=== PATIENT | male | born 1955 | race Two or more races ===

== ENCOUNTER 2022-04-18 13:30 | Inpatient (IN) | payer MEDICARE, OTHER ==
[~2022-04-18] VITALS: Ht 167.6 cm; Wt 60.3 kg
--- NOTE | 2022-04-18 13:51 | NUR ---
bibwife, c/o nausea vomiting x 3 today, last chemo 3 weeks ago. BROUGHT IN VIA WHEELCHAIR, AAOX4, PLACED ON BED, BREATHING EVEN AND UNLABORED SATURATING AT 92%RA GIVEN O2 2LIT VIA NC SATURATING AT 95%
--- NOTE | 2022-04-18 14:05 | NUR ---
AT BED SIDE FOR EVAL.
--- NOTE | 2022-04-18 14:20 | NUR ---
BLOOD DRAWN AND SENT TO LAB
[2022-04-18] MEDS ORDERED: IV NS 0.9% 1,000 ML BAG IV ONE ×2 (14:30→16:30)
[2022-04-18] MEDS ORDERED: ONDANSETRON HCL/PF 4 MG/2 ML VIAL IVP ONE (14:30)
[2022-04-18] MEDS ORDERED: ONDANSETRON HCL/PF 4 MG/2 ML VIAL ONE (14:42)
[2022-04-18 15:00] LABS: BASOPHILS % (AUTO) 0.1 % (0.0-2.0); EOSINOPHILS % (AUTO) 0.1 % (0.0-6.0); HEMATOCRIT 41 % (39-51); HEMOGLOBIN 13.8 g/dL (13.5-17.5); LYMPHOCYTES # (AUTO) 0.4 K/uL (0.8-4.8); LYMPHOCYTES % (AUTO) 3.5 % (20.0-44.0); MEAN CORPUSCULAR HGB CONC 34 g/dl (31.0-36.0); MEAN CORPUSCULAR VOLUME 92 fL (80-96); MONOCYTES # (AUTO) 0.5 K/uL (0.1-1.30); MONOCYTES % (AUTO) 4.6 % (2.0-12.0); NEUTROPHILS # (AUTO) 9.2 K/uL (1.8-8.9); NEUTROPHILS % (AUTO) 91.7 % (43.0-81.0); PLATELET COUNT (AUTO) 279 K/uL (150-450); RED BLOOD CELL COUNT(AUTO) 4.46 MIL/uL (4.5-6.0); WHITE BLOOD COUNT (AUTO) 10.1 K/uL (4.3-11.0)
[2022-04-18 15:12] LABS: CALCIUM, SERUM 8.9 mg/dL (8.5-10.1); CARBON DIOXIDE 30 mmol/L (21-32); CHLORIDE 89 mmol/L (98-107); CREATININE 1.4 mg/dL (0.6-1.3); GLUCOSE 184 mg/dL (74-106); POTASSIUM 3.5 mmol/L (3.5-5.1); SODIUM SERUM 128 mmol/L (136-145); UREA NITROGEN, BLOOD 18 mg/dL (7-18)
[2022-04-18 15:18] LABS: ALANINE AMINOTRANSFERASE 39 U/L (12-78); ALBUMIN 3.4 g/dL (3.4-5.0); ALKALINE PHOSPHATASE 63 U/L (46-116); ASPARTATE AMINOTRANSFERASE 27 U/L (15-37); BILIRUBIN,DIRECT 0.1 mg/dL (0.0-0.2); BILIRUBIN,TOTAL 0.4 mg/dL (0.2-1.0); LIPASE 72 U/L (73-393); TOTAL PROTEIN, SERUM 7.8 g/dL (6.4-8.2)
[2022-04-18] MEDS ORDERED: VANCOMYCIN 1 GM in IV D5W 250 ML IV ONE (16:30)
[2022-04-18] MEDS ORDERED: PIPERACILLIN /TAZOBACTAM 3.375 G in IV D5W 50 ML IV ONE (16:30)
[2022-04-18] MEDS ORDERED: ACETAMINOPHEN ES 500 MG TABLET PO ONE (16:30)
[2022-04-18] MEDS ORDERED: ONDANSETRON HCL/PF 4 MG/2 ML VIAL IV ONE (16:30)
--- NOTE | 2022-04-18 16:58 | NUR ---
URINE SAMPLE SENT TO LAB
--- NOTE | 2022-04-18 17:12 | NUR ---
SWAB FOR COVID19 SENT TO LAB
--- NOTE | 2022-04-18 17:20 | NUR ---
PATIENT TAKEN TO CT VIA CIPRIANO
[2022-04-18] MEDS ORDERED: IOHEXOL-300 100 ML VIAL IV ONE (17:24)
[2022-04-18] MEDS ORDERED: IV NS 0.9% 250 ML IV ONE (17:24)
[2022-04-18 17:56] LABS: BILIRUBIN,URINE NEGATIVE (NEGATIVE); COLOR,URINE YELLOW (YELLOW); LEUKOCYTE ESTERASE ,URINE NEGATIVE (NEGATIVE); NITRITE, URINE NEGATIVE (NEGATIVE); PROTEIN,URINE 30 mg/dl (NEGATIVE); UGLUCOSE NEGATIVE (NEGATIVE); UROBILINOGEN,URINE 0.2 EU/dL (0.2)
[2022-04-18 18:01] LABS: BACTERIA,URINE None seen /HPF (None Seen); SQUAMOUS EPITHELIAL CELL,UR 0-2 /HPF (None Seen); WBC,URINE 0-2 /HPF (0-3)
[2022-04-18] MEDS ORDERED: FOLI0.4T6 PO (19:19)
[2022-04-18] MEDS ORDERED: PRED20TA PO (19:19)
[2022-04-18] MEDS ORDERED: SULF1TAB48 PO (19:19)
[2022-04-18] MEDS ORDERED: PANT40TA49 PO (19:19)
[2022-04-18] MEDS ORDERED: IV CHEMO IV (19:19)
[2022-04-18] MEDS ORDERED: CHOL100043 PO (19:19)
[2022-04-18] MEDS ORDERED: ENTE0.5T11 PO (19:19)
[2022-04-18] MEDS ORDERED: MULT-188 PO (19:19)
[2022-04-18] MEDS ORDERED: CETI-90 PO (19:20)
--- NOTE | 2022-04-18 20:29 | NUR ---
Melania ramirez in [place] - 04/18/22 at 2132 by AUGUST REPORT GIVEN TO ISREAL DECKER ROOM 310-2 FOR MARI
[2022-04-18] MEDS ORDERED: ALBUTEROL FS 2.5 MG/0.5 ML VIAL.NEB NEB PRN (21:00)
[2022-04-18] MEDS ORDERED: ONDANSETRON HCL/PF 4 MG/2 ML VIAL IVP PRN (21:00)
[2022-04-18] MEDS ORDERED: IPRATROPIUM BROMIDE 14 GM INHALER (or 12.9 GM) IH PRN (21:00)
[2022-04-18] MEDS ORDERED: ACETAMINOPHEN ES 500 MG TABLET ONE (21:14)
[2022-04-18] MEDS ORDERED: ACETAMINOPHEN ES 500 MG TABLET PO PRN (21:30)
--- NOTE | 2022-04-18 21:30 | NUR ---
REPORT GIVEN TO JOSE RN ROOM 113-2 FOR MARI
--- NOTE | 2022-04-18 21:40 | NUR ---
RN NOTE RECEIVED REPORT FROM ER NURSE BUCK. PT ARRIVED VIA GURNEY, AMBULATORY BUT WITH ASSISTANCE. PT BROUGHT TO HOSPITAL DUE TO NAUSEA AND VOMITING WITH AN ADMITTING DIAGNOSIS OF SEPSIS. CURRENTLY ON O2 THERAPY VIA NC, 3L. PT IS TOLERATING WELL. NO S/SX OF ACUTE DISTRESS NOTED AT THIS TIME. DENIES PAIN. ON TELE MONITOR SHOWING SINUS TACHYCARDIA WITH A HR OF >120. O2 SATURATION IS >95%. PT IS A/O X 4, ABLE TO MAKE NEEDS KNOWN. FRISIAN SPEAKING BUT CAN SPEAK AND UNDERSTAND SIMPLE ROMANSH. IV ACCESS NOTED IN LAC, #20G. INTACT AND PATENT. STARTED INFUSING NS @ 75 CC/HR ORDERED. SKIN IS INTACT. URINAL ON BEDSIDE. ALL SAFETY MEASURES IN PLACE: BED LOCKED, IN LOW POSITION. BED ALARM ON. CALL LIGHT WITHIN REACH. WILL CONTINUE TO MONITOR PT CLOSELY.
[2022-04-18] MEDS: IV NS 0.9% 1,000 ML IV SCH (22:00)
[2022-04-18] MEDS ORDERED: IV NS 0.9% 1,000 ML IV STA (23:41)
[2022-04-18] MEDS ORDERED: PIPERACILLIN /TAZOBACTAM 3.375 G VIAL IV ONE (23:50)
[2022-04-19] VITALS: BP 108/59
[2022-04-19] MEDS: ZOSYN IVPB 3.375 G in IV D5W 50ml IV SCH ×2 (00:11→06:00)
[2022-04-19] MEDS: ACETAMINOPHEN 325 MG TABLET PO PRN ×3 (03:39→23:12)
[2022-04-19 04:00] VITALS: BP 115/65
--- NOTE | 2022-04-19 04:03 | NUR ---
RN NOTE PT HAS ELEVATED TEMP AT 99.8 PT DENIES PAIN NOR SHOWS S/SX OF ACUTE DISTRESS UPON FURTHER ASSESSMENT. GAVE TYLENOL ORDERED. WILL CONTINUE TO MONITOR AND REASSESS IN 30 MINUTES.
[2022-04-19] MEDS ORDERED: PIPERACILLIN /TAZOBACTAM 3.375 G VIAL IV ONE (05:58)
--- NOTE | 2022-04-19 06:22 | NUR ---
RN CLOSING NOTE PT REMAINED STABLE THROUGHOUT THE NIGHT. ELEVATED TEMP NOW STABLE. TELE MONITOR SHOWS ST WITH HR IN THE 120s. PT DENIES PAIN. NO SOB. NO S/SX OF ACUTE DISTRESS NOTED. ALL DUE MEDS GIVEN ORDERED. NEEDS ATTENDED TO. TURNED AND REPOSITIONED. ALL SAFETY MEASURES IN PLACE. WILL ENDORSE TO AM SHIFT NURSE FOR MARI.
--- NOTE | 2022-04-19 07:20 | NUR ---
RN OPEN NOTE PATIENT IS ALERT , ORIENTED TIMES 4 , AMBULATORY BUT WITH ASSISTANCE. CURRENTLY ON O2 THERAPY VIA NC, 3L. PT IS TOLERATING WELL. NO S/SX OF ACUTE DISTRESS NOTED AT THIS TIME. DENIES PAIN. ON TELE MONITOR SHOWING SINUS TACHYCARDIA WITH A HR OF >118. O2 SATURATION IS 96%. PT IS A/O X 4, ABLE TO MAKE NEEDS KNOWN. LATVIAN SPEAKING BUT CAN SPEAK AND UNDERSTAND SIMPLE NAURUAN.HAS IV ACCESS NOTED IN LAC, #20G. INTACT AND PATENT. WITH NS RUNNING @ 75 CC/HR SKIN IS INTACT. URINAL ON BEDSIDE. ALL SAFETY MEASURES IN PLACE: BED LOCKED, IN LOW POSITION. BED ALARM ON. CALL LIGHT WITHIN REACH. WILL CONTINUE TO MONITOR AND FALLOW POC
[2022-04-19] MEDS: VANCOMYCIN HCL 0.75 GM in IV D5W 250 ML IV SCH ×2 (07:23→19:42)
[2022-04-19 07:37] LABS: ALBUMIN 2.5 g/dL (3.4-5.0); BILIRUBIN,TOTAL 0.6 mg/dL (0.2-1.0); CALCIUM, SERUM 7.7 mg/dL (8.5-10.1); CREATININE 1.3 mg/dL (0.6-1.3); PHOSPHORUS 3.4 mg/dL (2.5-4.9); POTASSIUM 3.2 mmol/L (3.5-5.1); TOTAL PROTEIN, SERUM 6.2 g/dL (6.4-8.2)
[2022-04-19] MEDS: PANTOPRAZOLE 40 MG TABLET.DR PO SCH (07:41)
[2022-04-19 07:44] LABS: HEMATOCRIT 39 % (39-51); MEAN CORPUSCULAR HGB CONC 34 g/dl (31.0-36.0); MEAN CORPUSCULAR VOLUME 92 fL (80-96); PLATELET COUNT (AUTO) 192 K/uL (150-450)
[2022-04-19 07:47] LABS: BAND % (MANUAL) 14 % (0.0-5.0); LYMPHOCYTES % (MANUAL) 1 % (16-48); MONOCYTES % (MANUAL) 1 % (0-11.0); NEUTROPHILS % (MANUAL) 84 (42-76)
[2022-04-19 08:00] VITALS: BP 100/64
[2022-04-19] MEDS: MULTIVITAMINS,THERAGRAN 1 UDTAB TABLET PO SCH (08:21)
[2022-04-19] MEDS: FOLIC ACID 1 MG TABLET PO SCH (08:21)
[2022-04-19] MEDS: CHOLECALCIFEROL 1,000 UNIT TABLET (VIT D3) PO SCH (08:22)
[2022-04-19] MEDS: cetrizine 10 MG TABLET PO SCH (08:22)
[2022-04-19] MEDS ORDERED: PANTOPRAZOLE 40 MG VIAL IV SCH (09:00)
[2022-04-19] MEDS ORDERED: predniSONE 20 MG TABLET PO SCH (09:00)
[2022-04-19 09:31] LABS: THYROID STIMULATING HORMONE 0.347 uIU/mL (0.358-3.74)
[2022-04-19] MEDS ORDERED: POTASSIUM CHLORIDE 20 MEQ TAB.PRT.SR PO SCH (10:00)
[2022-04-19] MEDS: IV NS 0.9% 1,000 ML IV SCH ×2 (10:29→22:41)
[2022-04-19] MEDS: PIPERACILLIN /TAZOBACTAM 3.375 G in IV D5W 50 ML IV SCH ×3 (11:41→23:01)
[2022-04-19 12:00] VITALS: BP 105/61
[2022-04-19 16:00] VITALS: BP 111/57
--- NOTE | 2022-04-19 18:31 | NUR ---
RN CLOSING NOTE PATIENT IS ALERT , ORIENTED TIMES 4 , AMBULATORY BUT WITH ASSISTANCE. CURRENTLY ON O2 THERAPY VIA NC, 3L. PT IS TOLERATING WELL. NO S/SX OF ACUTE DISTRESS NOTED AT THIS TIME. DENIES PAIN. ON TELE MONITOR SHOWING SINUS TACHYCARDIA WITH A HR OF >120. O2 SATURATION IS 97%. PT IS A/O X 4, ABLE TO MAKE NEEDS KNOWN. NIGERIAN SPEAKING BUT CAN SPEAK AND UNDERSTAND SIMPLE ARABIC.HAS IV ACCESS NOTED IN LAC, #20GRUNNING NS AT 75 ML/HR, INTACT AND PATENT. URINAL ON BEDSIDE. ALL SAFETY MEASURES IN PLACE: BED LOCKED, IN LOW POSITION. BED ALARM ON. CALL LIGHT WITHIN REACH.
--- NOTE | 2022-04-19 19:30 | NUR ---
RN OPENING NOTE RECEIVED PT FOR MARI. PT IN BED, AWAKE, A/O X 4, ABLE TO MAKE NEEDS KNOWN. ON BEDSIDE. ON 02 VIA NC AT 3L, TOLERATING WELL. NO S/SX OF ACUTE DISTRESS NOTED AT THIS TIME. PT DENIES PAIN. IV ACCESS NOTED IN LAC #20G RUNNING NS @ 75 CC/HR, INTACT AND PATENT. ON TELE MONITOR SHOWING ST, HR IN THE 110s. WILL CONTINUE TO MONITOR PT CLOSELY. ALL SAFETY MEASURES IN PLACE: BED LOCKED IN LOW POSITION, BED ALARM ON. CALL LIGHT WITHIN REACH.
[2022-04-19] MEDS: ENTECAVIR 0.5 MG PO SCH (19:42)
[2022-04-19 20:00] VITALS: BP 109/63
--- NOTE | 2022-04-19 23:17 | NUR ---
RN NOTE PT HAS LOW GRADE FEVER. DENIES PAIN. NO SOB. GAVE TYLENOL ORDERED. WILL REASSESS IN 30 MINUTES.
--- NOTE | 2022-04-19 23:47 | NUR ---
RN NOTE PT TEMP NOW STABLE. WILL CONTINUE TO MONITOR.
[2022-04-20] VITALS: BP 109/60
[2022-04-20 04:00] VITALS: BP 113/69
[2022-04-20] MEDS: PIPERACILLIN /TAZOBACTAM 3.375 G in IV D5W 50 ML IV SCH ×4 (05:02→23:39)
[2022-04-20] MEDS: VANCOMYCIN HCL 0.75 GM in IV D5W 250 ML IV SCH (06:05)
--- NOTE | 2022-04-20 06:31 | NUR ---
RN CLOSING NOTE NO SIGNIFICANT CHANGE THROUGHOUT THE NIGHT. PT ON TELE MONITOR REMAINS ST WITH HR OF 100-120. O2 SATURATION IS >95%. PT STILL DENIES PAIN OR SOB. ALL DUE MEDS GIVEN. NEEDS ATTENDED TO. PM CARE DONE. TURNED AND REPOSITIONED. SAFETY MEASURES IN PLACE. WILL ENDORSE TO AM SHIFT NURSE FOR MARI.
--- NOTE | 2022-04-20 07:15 | NUR ---
RN OPENING NOTE RECEIVED PATIENT IN BED, A/O X 4, VERBAL ,ABLE TO MAKE NEEDS KNOWN. ON 02 VIA NC AT 3L, TOLERATING WELL. NO S/SX OF ACUTE DISTRESS NOTED AT THIS TIME. PT DENIES PAIN. IV ACCESS NOTED IN LAC #20G RUNNING NS @ 75 CC/HR, INTACT AND PATENT. ON TELE MONITOR SHOWING ST, HR IN THE 110s. . ALL SAFETY MEASURES IN PLACE: BED LOCKED IN LOW POSITION, BED ALARM ON. CALL LIGHT WITHIN REACH. WILL CONTINUE TO MONITOR AND FALLOW THE POC
[2022-04-20 07:59] LABS: CALCIUM, SERUM 9.3 mg/dL (8.5-10.1)
[2022-04-20 08:00] VITALS: BP 110/62
[2022-04-20] MEDS: cetrizine 10 MG TABLET PO SCH (08:43)
[2022-04-20] MEDS: CHOLECALCIFEROL 1,000 UNIT TABLET (VIT D3) PO SCH (08:44)
[2022-04-20] MEDS: predniSONE 20 MG TABLET PO SCH (08:44)
[2022-04-20] MEDS: FOLIC ACID 1 MG TABLET PO SCH (08:44)
[2022-04-20] MEDS: MULTIVITAMINS,THERAGRAN 1 UDTAB TABLET PO SCH (08:45)
[2022-04-20] MEDS: PANTOPRAZOLE 40 MG TABLET.DR PO SCH (08:49)
[2022-04-20] MEDS: ENTECAVIR 0.5 MG PO SCH (08:50)
[2022-04-20 12:00] VITALS: BP 99/60
[2022-04-20] MEDS: IV NS 0.9% 1,000 ML IV SCH (13:04)
[2022-04-20] MEDS: ACETAMINOPHEN 325 MG TABLET PO PRN (15:53)
[2022-04-20 16:00] VITALS: BP 111/74
[2022-04-20] MEDS: VANCOMYCIN 1 GM in IV D5W 250 ML IV SCH (17:34)
--- NOTE | 2022-04-20 18:46 | NUR ---
RN CLOSING NOTE RECEIVED IN BED, A/O X 4, VERBAL ,ABLE TO MAKE NEEDS KNOWN. ON 02 VIA NC AT 3L, TOLERATING WELL. NO S/SX OF ACUTE DISTRESS NOTED AT THIS TIME. PT DENIES PAIN. IV ACCESS NOTED IN TYSON #24 G RUNNING NS @ 75 CC/HR, INTACT AND PATENT. ON TELE MONITOR SHOWING ST, HR IN THE 98s. . ALL SAFETY MEASURES IN PLACE: BED LOCKED IN LOW POSITION, BED ALARM ON. CALL LIGHT WITHIN REACH. WILL CONTINUE TO MONITOR AND FALLOW THE POC
--- NOTE | 2022-04-20 19:30 | NUR ---
RECEIVED IN BED WITH DAUGHTER AT BEDSIDE, A/O X 4, VERBAL AND ABLE TO MAKE NEEDS KNOWN. ON 02 VIA NC AT 3L, TOLERATING WELL. NO S/SX OF ACUTE DISTRESS NOTED AT THIS TIME. IV ACCESS NOTED IN RT ARM #24 G INFUSING NS @ 75 ML/HR, INTACT AND PATENT. ON TELE MONITOR SHOWING ST WITH HR AT 120s. SAFETY MEASURES IMPLEMENTED PER HOSPITAL PROTOCOLS, HOB ELEVATED, BED LOCKED IN LOWEST POSITION WITH SIDE RAILS UP X 2. CALL LIGHT WITHIN REACH. WILL CONTINUE PLAN OF CARE.
[2022-04-20 19:59] LABS: OCCULT BLOOD STOOL NEGATIVE (NEGATIVE)
[2022-04-20 20:00] VITALS: BP 101/65
[2022-04-21] VITALS: BP 113/73
[2022-04-21] MEDS: IV NS 0.9% 1,000 ML IV SCH ×3 (02:54→21:37)
[2022-04-21 04:00] VITALS: BP 99/67
[2022-04-21] MEDS: VANCOMYCIN 1 GM in IV D5W 250 ML IV SCH (05:15)
[2022-04-21] MEDS: PIPERACILLIN /TAZOBACTAM 3.375 G in IV D5W 50 ML IV SCH (05:47)
--- NOTE | 2022-04-21 06:52 | NUR ---
PATIENT IN BED ASLEEP. EASILY AWAKENS. A/O X 4, VERBAL AND ABLE TO MAKE NEEDS KNOWN. ON 02 VIA NC AT 3L, TOLERATING WELL. NO S/SX OF ACUTE DISTRESS NOTED AT THIS TIME. IV ACCESS NOTED IN RT ARM #24 G INFUSING NS @ 75 ML/HR, INTACT AND PATENT. ON TELE MONITOR SHOWING ST WITH HR AT 120s. ALL DUE MEDS GIVEN. SAFETY MEASURES IMPLEMENTED PER HOSPITAL PROTOCOLS, HOB ELEVATED, BED LOCKED IN LOWEST POSITION WITH SIDE RAILS UP X 2. CALL LIGHT WITHIN REACH. WILL ENDORSE TO NEXT NURSE ON DUTY FOR CONTINUITY OF CARE.
[2022-04-21 06:53] LABS: BASOPHILS % (AUTO) 0.2 % (0.0-2.0); EOSINOPHILS % (AUTO) 0.4 % (0.0-6.0); HEMATOCRIT 42 % (39-51); HEMOGLOBIN 13.3 g/dL (13.5-17.5); LYMPHOCYTES # (AUTO) 0.8 K/uL (0.8-4.8); LYMPHOCYTES % (AUTO) 15.5 % (20.0-44.0); MEAN CORPUSCULAR HGB CONC 31 g/dl (31.0-36.0); MEAN CORPUSCULAR VOLUME 96 fL (80-96); MONOCYTES # (AUTO) 0.5 K/uL (0.1-1.30); MONOCYTES % (AUTO) 10.1 % (2.0-12.0); NEUTROPHILS # (AUTO) 3.8 K/uL (1.8-8.9); NEUTROPHILS % (AUTO) 73.8 % (43.0-81.0); PLATELET COUNT (AUTO) 108 K/uL (150-450); RED BLOOD CELL COUNT(AUTO) 4.39 MIL/uL (4.5-6.0); WHITE BLOOD COUNT (AUTO) 5.2 K/uL (4.3-11.0)
[2022-04-21 06:55] LABS: CALCIUM, SERUM 9.1 mg/dL (8.5-10.1); CREATININE 0.8 mg/dL (0.6-1.3); POTASSIUM 3.6 mmol/L (3.5-5.1)
--- NOTE | 2022-04-21 07:30 | NUR ---
RN OPEN NOTE PATIENT IS A&O X4, AMBULATORY TO BATHROOM. PATIENT SATTING AT 96% ON 3L NC. IV ACCESS LAC, #20G. INTACT, PATENT and RUNNING NS @ 75 ML/HR SKIN IS INTACT. URINAL ON BEDSIDE. ALL SAFETY FALL PRECAUTIONS IN PLACE, BED IN LOWEST POSITION, BED LOCK ON, SIDE RAILS UP, BED ALARM ON, CALL LIGHT WITHIN REACH. WILL CONTINUE TO MONITOR.
[2022-04-21 08:07] LABS: IMMUNOGLOBULIN A, SERUM 278 mg/dL (61-437); IMMUNOGLOBULIN G, SERUM 833 mg/dL (603-1613); IMMUNOGLOBULIN M, SERUM 177 mg/dL (20-172)
[2022-04-21] MEDS: MULTIVITAMINS,THERAGRAN 1 UDTAB TABLET PO SCH (09:44)
[2022-04-21] MEDS: PANTOPRAZOLE 40 MG TABLET.DR PO SCH (09:44)
[2022-04-21] MEDS: ENTECAVIR 0.5 MG PO SCH (09:44)
[2022-04-21] MEDS: FOLIC ACID 1 MG TABLET PO SCH (09:44)
[2022-04-21] MEDS: cetrizine 10 MG TABLET PO SCH (09:45)
[2022-04-21] MEDS: predniSONE 20 MG TABLET PO SCH (09:46)
[2022-04-21] MEDS: CHOLECALCIFEROL 1,000 UNIT TABLET (VIT D3) PO SCH (09:47)
[2022-04-21 10:49] LABS: MAGNESIUM 2.5 mg/dL (1.8-2.4); PHOSPHORUS 3.1 mg/dL (2.5-4.9)
--- NOTE | 2022-04-21 11:00 | NUR ---
RN NOTE PATIENT AND WERE EDUCATED ABOUT THE PATIENTS CONDITION AND TREATMENT MOVING FORWARD.
[2022-04-21 12:06] LABS: *SPE A/G RATIO 0.7 (0.7-1.7); *SPE ALPHA-1-GLOBULIN 0.5 g/dL (0.0-0.4); *SPE ALPHA-2-GLOBULIN 1.1 g/dL (0.4-1.0); *SPE M-SPIKE 0.5 g/dL (Not Observed)
[2022-04-21 13:00] VITALS: BP 146/64
--- NOTE | 2022-04-21 15:40 | NUR ---
RN/NOTE NS WAS HELD DUE TO BAG BEING FULL.
--- NOTE | 2022-04-21 19:00 | NUR ---
RN/NOTE ALL CARE ENDORSED TO SOFTBALL PLAYER RN. ALL VSS. NO SIGNS OF DISTRESS.
--- NOTE | 2022-04-21 19:30 | NUR ---
RECEIVED IN BED AWAKE, NO SOB, NOT IN DISTRESS. A/O X 4, VERBAL AND ABLE TO MAKE NEEDS KNOWN. ON 02 VIA NC AT 3L, TOLERATING WELL. NO S/SX OF ACUTE DISTRESS NOTED AT THIS TIME. IV ACCESS NOTED IN RT ARM #24 G INFUSING NS @ 75 ML/HR, INTACT AND PATENT. ON TELE MONITOR SHOWING ST WITH HR AT 120s. SAFETY MEASURES IMPLEMENTED PER HOSPITAL PROTOCOLS, HOB ELEVATED, BED LOCKED IN LOWEST POSITION WITH SIDE RAILS UP X 2. CALL LIGHT WITHIN REACH. WILL CONTINUE PLAN OF CARE.
[2022-04-21 21:00] VITALS: BP 122/93
[2022-04-21] MEDS: CEFEPIME 1 GM in IV D5W 50 ML IV SCH (21:34)
[2022-04-21] MEDS: DOXYCYCLINE HYCLATE (100 MG) 100 MG TABLET PO SCH (21:34)
[2022-04-22 05:00] VITALS: BP 119/76
--- NOTE | 2022-04-22 06:38 | NUR ---
PT IN BED ASLEEP. A/O X 4, VERBAL AND ABLE TO MAKE NEEDS KNOWN. ON 02 VIA NC AT 3L, TOLERATING WELL. NO S/SX OF ACUTE DISTRESS NOTED AT THIS TIME. IV ACCESS NOTED IN RT ARM #24 G INFUSING NS @ 75 ML/HR, INTACT AND PATENT. ON TELE MONITOR SHOWING ST WITH HR AT 120s. SAFETY MEASURES IMPLEMENTED PER HOSPITAL PROTOCOLS, HOB ELEVATED, BED LOCKED IN LOWEST POSITION WITH SIDE RAILS UP X 2. CALL LIGHT WITHIN REACH. WILL ENDORSE TO NEXT NURSE ON DUTY FOR CONTINUITY OF CARE.
--- NOTE | 2022-04-22 07:14 | NUR ---
MS RN OPENING NOTES: RECEIVED PT IN BED ASLEEP EASILY AROUSED WITH STIMULI. NO SOB OR CARDIAC DISTRESS NOTED, OM O2 INHALATION @3LPM VIA NASAL CANULLA. IV ACCESS ON LAC G20 PATENT AND INTACT RUNNING NS AT 75ML/HR. SAFETY PRECAUTIONS MAINTAINED: BED LOCKED AND IN LOWEST POSITION, SIDE RAILS UP X 2. CALL LIGHT IN EASY REACH FOR HELP. WILL MONITOR PATIENT ACCORDINGLY.
[2022-04-22 07:18] LABS: BASOPHILS % (AUTO) 0.2 % (0.0-2.0); EOSINOPHILS % (AUTO) 1.9 % (0.0-6.0); HEMATOCRIT 40 % (39-51); HEMOGLOBIN 12.7 g/dL (13.5-17.5); LYMPHOCYTES # (AUTO) 1.8 K/uL (0.8-4.8); LYMPHOCYTES % (AUTO) 27.7 % (20.0-44.0); MEAN CORPUSCULAR HGB CONC 32 g/dl (31.0-36.0); MEAN CORPUSCULAR VOLUME 94 fL (80-96); MONOCYTES # (AUTO) 0.8 K/uL (0.1-1.30); MONOCYTES % (AUTO) 11.8 % (2.0-12.0); NEUTROPHILS # (AUTO) 3.7 K/uL (1.8-8.9); NEUTROPHILS % (AUTO) 58.4 % (43.0-81.0); PLATELET COUNT (AUTO) 125 K/uL (150-450); RED BLOOD CELL COUNT(AUTO) 4.24 MIL/uL (4.5-6.0); WHITE BLOOD COUNT (AUTO) 6.4 K/uL (4.3-11.0)
[2022-04-22 07:36] LABS: CALCIUM, SERUM 8.7 mg/dL (8.5-10.1); CREATININE 0.8 mg/dL (0.6-1.3); MAGNESIUM 1.8 mg/dL (1.8-2.4); PHOSPHORUS 3.4 mg/dL (2.5-4.9); POTASSIUM 3.5 mmol/L (3.5-5.1)
[2022-04-22] MEDS: PANTOPRAZOLE 40 MG TABLET.DR PO SCH (07:45)
[2022-04-22] MEDS: ENTECAVIR 0.5 MG PO SCH (08:16)
[2022-04-22] MEDS: CHOLECALCIFEROL 1,000 UNIT TABLET (VIT D3) PO SCH (08:16)
[2022-04-22] MEDS: CEFEPIME 1 GM in IV D5W 50 ML IV SCH (08:16)
[2022-04-22] MEDS: predniSONE 20 MG TABLET PO SCH (08:17)
[2022-04-22] MEDS: DOXYCYCLINE HYCLATE (100 MG) 100 MG TABLET PO SCH (08:17)
[2022-04-22] MEDS: cetrizine 10 MG TABLET PO SCH (08:17)
[2022-04-22] MEDS: FOLIC ACID 1 MG TABLET PO SCH (08:17)
[2022-04-22] MEDS: MULTIVITAMINS,THERAGRAN 1 UDTAB TABLET PO SCH (08:17)
[2022-04-22] MEDS ORDERED: IV NS 0.9% 1,000 ML IV PRN (09:37)
[2022-04-22 13:00] VITALS: BP 112/65
--- NOTE | 2022-04-22 18:44 | NUR ---
RECOVERY COLLECTOR NOTES: PATIENT DC HOME WITH SHELL. PATIENT ALERT AND ORIENTED X 4 ABLE TO VERBALIZED NEEDS. NO SOB OR CARDIAC DISTRESS NOTED ON ROOM AIR TOLERATING WELL SATURATING 97%. DENIES ANY PAIN AT THIS TIME. HOSPITAL DISCHARGED PAPERS GIVEN TO PATIENT. FOLLOW UP TO PCP IN 1 WEEK. BELONGINGS CARRIED WITH THE PT, HOME MEDS TAKEN PATIENT SIGNED ALL DOCS/FORMS. BODY ASSESSMENT: SKIN INTACT. IV ACCESS REMOVED AND SECURED WITH TAPE. PATIENT LEFT THE UNIT STABLE. REMOVED IDENTIFICATION BAND.
== END 2022-04-22 18:00 | disposition home or self-care (01) | DRG 871 ==
LOC: ER 13:46 → TELE 20:14 → TELE1 20:52 → MEDSG1 04-21 09:47
PROVIDERS: ADMIT Registered Nurse; ATTEND Student in an Organized Health Care Education/Training Program
DX: A41.9 Sepsis, unspecified organism (principal); J15.9 Unspecified bacterial pneumonia; R65.21 Severe sepsis with septic shock; E87.1 Hypo-osmolality and hyponatremia; N17.9 Acute kidney failure, unspecified; D84.9 Immunodeficiency, unspecified; E87.2 Acidosis; C79.72 Secondary malignant neoplasm of left adrenal gland; C79.71 Secondary malignant neoplasm of right adrenal gland; B19.10 Unspecified viral hepatitis B without hepatic coma; E86.0 Dehydration; Z20.822 Contact with and (suspected) exposure to COVID-19; K21.9 Gastro-esophageal reflux disease without esophagitis; Z79.899 Other long term (current) drug therapy; R19.7 Diarrhea, unspecified; Z92.21 Personal history of antineoplastic chemotherapy; Z87.891 Personal history of nicotine dependence; Z85.118 Personal history of other malignant neoplasm of bronchus and lung; E88.09 Other disorders of plasma-protein metabolism, not elsewhere classified; E27.8 Other specified disorders of adrenal gland; E11.9 Type 2 diabetes mellitus without complications; D64.9 Anemia, unspecified; E86.1 Hypovolemia; E87.6 Hypokalemia; K42.9 Umbilical hernia without obstruction or gangrene; K44.9 Diaphragmatic hernia without obstruction or gangrene
CPT/HCPCS: 36415; 71045-TC; 71250-TC; 80048-TC; 80053-TC; 80061-TC; 80076-TC; 80202-TC; 81001; 82272-TC; 82378; 82607-TC; 82728-TC; 82784; 83540-TC; 83605-TC; 83690-TC; 83735-TC; 84100-TC; 84155; 84165; 84439-TC; 84443-TC; 84484-TC; 85025-TC; 86334; 87040-TC; 87045-TC; 87081-TC; 87086-TC; 87177; 87209; 94799-TC; C9113; C9803; G0378; J0692; J2405; J2543; J3370; J3490; J7030; J7050; J7060; Q9967

== ENCOUNTER 2022-05-02 22:43 | Inpatient (IN) | payer MEDICARE, OTHER ==
[~2022-05-02] VITALS: Ht 167.6 cm; Wt 57.6 kg
[~2022-05-02 22:43] MED LIST: CETI-90 PO; CHOL100043 PO; ENTE0.5T11 PO; FOLI0.4T6 PO; IV CHEMO IV; MULT-188 PO; PANT40TA49 PO; PRED20TA PO; SULF1TAB48 PO
--- NOTE | 2022-05-02 22:53 | NUR ---
PATIENT BIBFAMILY C/O FEVER, CHILLS, N/V STARTED TONIGHT, GIVEN 2 TABS OF TYLENOL PIPE COVERING MOLDER. PATIENT TAKEN TO ER BED 06. PATIENT IS A/O X 4, RR EVEN, NO SOB NOTED. PATIENT AFEBRILE. PATIENT CONNECTED TO MONITORS.
--- NOTE | 2022-05-02 22:54 | NUR ---
ER AT BEDSIDE
[2022-05-02] MEDS ORDERED: IV LR 1000 ML 1,000 ML BAG IV ONE (23:00)
[2022-05-02] MEDS ORDERED: PIPERACILLIN /TAZOBACTAM 3.375 G in IV D5W 50 ML IV ONE (23:00)
[2022-05-02] MEDS ORDERED: MORPHINE SULFATE INJ 2 MG/ML DISP.SYRIN IV ONE (23:00)
[2022-05-02] MEDS ORDERED: ONDANSETRON HCL/PF - ER 4 MG/2 ML VIAL IV ONE (23:00)
[2022-05-02] MEDS ORDERED: MORPHINE SULFATE INJ 2 MG/ML DISP.SYRIN ONE (23:04)
[2022-05-02] MEDS ORDERED: ONDANSETRON HCL/PF 4 MG/2 ML VIAL ONE (23:04)
[2022-05-02] MEDS ORDERED: PIPERACILLIN /TAZOBACTAM 3.375 G VIAL IV ONE (23:06)
--- NOTE | 2022-05-02 23:18 | NUR ---
IV LINE ESTABLISHED, RFA20G
--- NOTE | 2022-05-02 23:19 | NUR ---
COVID SWAB COLLECTED AND SENT TO LAB
--- NOTE | 2022-05-02 23:19 | NUR ---
PCR COVID SWAB COLLECTED
--- NOTE | 2022-05-02 23:19 | NUR ---
BLOOD AND CULTURES COLLECTED AND SENT TO LAB
--- NOTE | 2022-05-02 23:20 | NUR ---
MRSA SWAB COLLECTED AND SENT TO LAB
--- NOTE | 2022-05-02 23:20 | NUR ---
URINE COLLECTED AND SENT TO LAB
[2022-05-02 23:26] LABS: BASOPHILS % (AUTO) 0.1 % (0.0-2.0); EOSINOPHILS % (AUTO) 0.2 % (0.0-6.0); HEMATOCRIT 40 % (39-51); HEMOGLOBIN 13.2 g/dL (13.5-17.5); LYMPHOCYTES # (AUTO) 0.3 K/uL (0.8-4.8); LYMPHOCYTES % (AUTO) 2.4 % (20.0-44.0); MEAN CORPUSCULAR HGB CONC 33 g/dl (31.0-36.0); MEAN CORPUSCULAR VOLUME 92 fL (80-96); MONOCYTES # (AUTO) 0.1 K/uL (0.1-1.30); NEUTROPHILS # (AUTO) 11.8 K/uL (1.8-8.9); NEUTROPHILS % (AUTO) 96.3 % (43.0-81.0); PLATELET COUNT (AUTO) 356 K/uL (150-450); RED BLOOD CELL COUNT(AUTO) 4.36 MIL/uL (4.5-6.0); WHITE BLOOD COUNT (AUTO) 12.2 K/uL (4.3-11.0)
[2022-05-02] MEDS ORDERED: IV NS 0.9% 1,000 ML IV ONE (23:30)
[2022-05-02 23:38] LABS: CALCIUM, SERUM 8.7 mg/dL (8.5-10.1); CARBON DIOXIDE 26 mmol/L (21-32); CHLORIDE 96 mmol/L (98-107); GLUCOSE 197 mg/dL (74-106); POTASSIUM 3.7 mmol/L (3.5-5.1); SODIUM SERUM 132 mmol/L (136-145); UREA NITROGEN, BLOOD 26 mg/dL (7-18)
[2022-05-02 23:44] LABS: ALANINE AMINOTRANSFERASE 59 U/L (12-78); ALBUMIN 3.2 g/dL (3.4-5.0); ALKALINE PHOSPHATASE 80 U/L (46-116); ASPARTATE AMINOTRANSFERASE 37 U/L (15-37); BILIRUBIN,DIRECT 0.1 mg/dL (0.0-0.2); BILIRUBIN,TOTAL 0.3 mg/dL (0.2-1.0); MAGNESIUM 1.7 mg/dL (1.8-2.4); TOTAL PROTEIN, SERUM 6.9 g/dL (6.4-8.2)
--- NOTE | 2022-05-02 23:47 | NUR ---
INFLUENZA SWAB COLLECTED AND SENT TO LAB
--- NOTE | 2022-05-02 23:49 | NUR ---
CRITICAL LAB: LACTIC ACID 4.1
--- NOTE | 2022-05-02 23:56 | NUR ---
PT BROUGHT TO CT DEPT
[2022-05-02 23:57] LABS: BILIRUBIN,URINE NEGATIVE (NEGATIVE); COLOR,URINE YELLOW (YELLOW); LEUKOCYTE ESTERASE ,URINE NEGATIVE (NEGATIVE); NITRITE, URINE NEGATIVE (NEGATIVE); PROTEIN,URINE NEGATIVE (NEGATIVE); UGLUCOSE 100 MG/DL mg/dL (NEGATIVE); UROBILINOGEN,URINE 0.2 EU/dL (0.2)
--- NOTE | 2022-05-03 00:18 | NUR ---
SHELL . PLS CALL FOR ANY ISSUES WITH REGARDS TO PATIENT.
[2022-05-03] MEDS ORDERED: VANCOMYCIN 1 GM VIAL ONE (02:41)
[2022-05-03] MEDS ORDERED: VANCOMYCIN 500 MG VIAL ONE (02:41)
[2022-05-03] MEDS ORDERED: VANCOMYCIN HCL 1.25 GM in IV D5W 260 ML IV ONE (03:00)
[2022-05-03] MEDS ORDERED: ONDANSETRON HCL/PF 4 MG/2 ML VIAL IVP PRN (03:00)
[2022-05-03] MEDS ORDERED: Magnesium 1GM/D5W 100ML PREMIX 100 ML IV SCH (03:00)
[2022-05-03] MEDS ORDERED: Z GUARD REMEDY 4 OZ OINT TP PRN (03:00)
[2022-05-03] MEDS ORDERED: Magnesium 1GM/D5W 100ML PREMIX 100 ML IV ONE (03:52)
[2022-05-03] MEDS ORDERED: ENOXAPARIN SODIUM 40 MG/0.4 ML DISP.SYRIN SQ ONE (03:53)
[2022-05-03] MEDS ORDERED: MORPHINE SULFATE INJ 2 MG/ML DISP.SYRIN ONE (03:56)
[2022-05-03] MEDS: ENOXAPARIN SODIUM 40 MG/0.4 ML DISP.SYRIN SQ SCH ×2 (04:00→22:00)
[2022-05-03] MEDS: MORPHINE SULFATE INJ 2 MG/ML DISP.SYRIN IV PRN (04:03)
[2022-05-03] MEDS ORDERED: ZOSYN IVPB 3.375 G in IV D5W 50ml IV ONE (06:00)
[2022-05-03] MEDS ORDERED: ACETAMINOPHEN 325 MG TABLET ONE (06:09)
[2022-05-03] MEDS ORDERED: PIPERACILLIN /TAZOBACTAM 3.375 G VIAL IV ONE (06:13)
[2022-05-03] MEDS: ACETAMINOPHEN 325 MG TABLET PO PRN ×3 (06:24→18:03)
[2022-05-03] MEDS: IV NS 0.9% 1,000 ML IV PRN ×2 (06:24→12:08)
--- NOTE | 2022-05-03 10:02 | NUR ---
REPORT GIVEN TO JENNIFER FOR MARI
--- NOTE | 2022-05-03 10:45 | NUR ---
RN OPENING NOTE PT RECEIVED FROM ED. PT IS STABLE AT THIS TIME AND ON 3L NC. PT IS A/OX3 AND SPEAKS THAI. PT IS ON TELE MONITOR ST. PT USES URINAL. PT IS ON CARDIAC LOW FAT DIET. IV ACCESS R FA. BED IS LOCKED IN LOWEST POSITION X2 BED RAILS UP AND ALL HOSPITAL SAFETY MEASURES ARE IN PLACE WILL CONTINUE TO MONITOR THIS SHIFT.
--- NOTE | 2022-05-03 10:50 | NUR ---
PT TRANPORTED TO TELE FLOOR WITH ACLS PROTOCOLS IN PLACE.
[2022-05-03 12:00] VITALS: BP 120/54
[2022-05-03] MEDS: PIPERACILLIN /TAZOBACTAM 3.375 G in IV D5W 50 ML IV SCH ×3 (12:09→23:40)
[2022-05-03] MEDS ORDERED: IV NS 0.9% 250 ML IV PRN (12:30)
[2022-05-03] MEDS: VANCOMYCIN 1 GM in IV D5W 250 ML IV SCH (14:59)
[2022-05-03 16:00] VITALS: BP 120/54
[2022-05-03] MEDS: predniSONE 20 MG TABLET PO SCH (18:04)
[2022-05-03 18:43] LABS: CALCIUM, SERUM 8.4 mg/dL (8.5-10.1); CREATININE 1.1 mg/dL (0.6-1.3); POTASSIUM 3.9 mmol/L (3.5-5.1)
--- NOTE | 2022-05-03 18:47 | NUR ---
RN CLOSING NOTE PT IS IN BED SITTING UP WITH HOB >30 DEGREES. PT IS ON 3L NC TOLERATING WELL O2 SAT 97%. PT IS A/OX3 AND SPEAKS LAO. PT IS ON TELE MONITOR ST AT THIS TIME 130'S. PT HAS LOW GRADE FEVER OF 100.5 TYLENOL HAS BEEN GIVEN AND COOLING MEASURES INTERVENTIONS ARE IN USE. PT USES URINAL - 1350ML. PT IS ON CARDIAC LOW FAT DIET. IV ACCESS R FA CURRENTLY INFUSING WITH NS@75ML/HR. BED IS LOCKED IN LOWEST POSITION X2 BED RAILS UP AND ALL HOSPITAL SAFETY MEASURES ARE IN PLACE WILL ENDORSE TO TEXTILE CONSERVATOR NURSE FOR MARI.
--- NOTE | 2022-05-03 19:40 | NUR ---
RN OPENING NOTES: RECEIVED PT IN BED, SLEEPING BUT EASILY AROUSABLE. A/O X3-4 AND VERBALLY RESPONSIVE. ON O2 AT 3L/MIN VIA N/C AND PT TOLERATING WELL. COOLING MEASURES ON DUE INCREASED TEMP DURING PREVIOUS SHIFT. IV ACCESS RFA INTACT AND PATENT. RUNNING NS@75ML/HR. NO C/O PAIN OR DISCOMFORT. NO ACUTE DISTRESS. ABLE TO USE URINAL. ALL SAFETY MEASURES IN PLACE. BED IN LOWEST POSITION AND LOCKED. SIDE RAILS UP X2. PLACE CALL LIGHT WITH IN REACH. WILL CONTINUE TO MONITOR.
[2022-05-03 20:00] VITALS: BP 95/51
[2022-05-04] VITALS: BP 98/61
[2022-05-04] MEDS: VANCOMYCIN 1 GM in IV D5W 250 ML IV SCH ×2 (03:01→15:08)
[2022-05-04] MEDS: IV NS 0.9% 1,000 ML IV PRN (03:35)
[2022-05-04 04:00] VITALS: BP 101/64
[2022-05-04] MEDS: PIPERACILLIN /TAZOBACTAM 3.375 G in IV D5W 50 ML IV SCH ×4 (06:06→23:40)
[2022-05-04 06:19] LABS: BASOPHILS % (AUTO) 0.2 % (0.0-2.0); EOSINOPHILS % (AUTO) 0.1 % (0.0-6.0); HEMATOCRIT 39 % (39-51); HEMOGLOBIN 12.7 g/dL (13.5-17.5); LYMPHOCYTES # (AUTO) 0.5 K/uL (0.8-4.8); LYMPHOCYTES % (AUTO) 10.8 % (20.0-44.0); MEAN CORPUSCULAR HGB CONC 33 g/dl (31.0-36.0); MEAN CORPUSCULAR VOLUME 93 fL (80-96); MONOCYTES # (AUTO) 0.2 K/uL (0.1-1.30); MONOCYTES % (AUTO) 3.6 % (2.0-12.0); NEUTROPHILS # (AUTO) 4.2 K/uL (1.8-8.9); NEUTROPHILS % (AUTO) 85.3 % (43.0-81.0); PLATELET COUNT (AUTO) 269 K/uL (150-450); RED BLOOD CELL COUNT(AUTO) 4.18 MIL/uL (4.5-6.0); WHITE BLOOD COUNT (AUTO) 4.9 K/uL (4.3-11.0)
[2022-05-04 06:39] LABS: CALCIUM, SERUM 8.5 mg/dL (8.5-10.1); CREATININE 0.9 mg/dL (0.6-1.3); MAGNESIUM 2.3 mg/dL (1.8-2.4); PHOSPHORUS 3.8 mg/dL (2.5-4.9); POTASSIUM 3.7 mmol/L (3.5-5.1)
--- NOTE | 2022-05-04 06:39 | NUR ---
RN CLOSING NOTES: PT IN BED, AWAKE, A/O X3-4 AND VERBALLY RESPONSIVE. ON O2 AT 3L/MIN VIA N/C AND PT TOLERATING WELL. O2 SAT 98%. AFEBRILE. IV ACCESS RFA INFILTRATED. NEW SALINE LOCK ON LT HAND #22 G. INTACT AND PATENT. RUNNING NS@75ML/HR. NO C/O PAIN OR DISCOMFORT. NO ACUTE DISTRESS. ABLE TO USE URINAL. ALL DUE MEDS GIVEN ORDERED. ALL SAFETY MEASURES IN PLACE. BED IN LOWEST POSITION AND LOCKED. SIDE RAILS UP X2. PLACE CALL LIGHT WITH IN REACH. WILL ENDORSE TO MORNING SHIFT NURSE.
--- NOTE | 2022-05-04 07:30 | NUR ---
RN OPENING NOTE PATIENT IS IN BED AWAKE, ALERT AND ORIENTED X 4, DENIES PAIN, BREATHING UNLABORED AND NOT IN ANY FORM OF DISTRESS. WITH OXYGEN VIA NASAL CANNULA AT 3L/MIN. SINUS TACHYCARDIA AT 104 BPM ON LINUX KERNEL ENGINEER. WITH LEFT HAND IV LINE INFUSING WITH NS AT 75 CC/HR, NO SIGN OF PHLEBITIS OR INFILTRATION ON IV SITE. RIGHT ARM IS NOTED TO BE EDEMATOUS AND IS ELEVATED ON A PILLOW TO DECREASE SWELLING. ALL HOSPITAL SAFETY PRECAUTIONS IN PLACE. BED IS LOCKED IN LOWEST POSITION, 3 SIDE RAILS UP, CALL LIGHT WITHIN REACH. WILL CONTINUE TO MONITOR THROUGHOUT SHIFT.
[2022-05-04 08:00] VITALS: BP 113/67
[2022-05-04] MEDS: predniSONE 20 MG TABLET PO SCH (08:30)
[2022-05-04] MEDS: SULFAMETH/TRIMETH 800/160 MG 1 UDTAB TABLET PO SCH (08:30)
--- NOTE | 2022-05-04 11:23 | NUR ---
RN NOTE REQUEST FOR HEALTH INFORMATION SENT VIA FAX TO [facility].
[2022-05-04 12:00] VITALS: BP 101/52
--- NOTE | 2022-05-04 14:56 | NUR ---
RN NOTE LEFT HAND IV INFILTRATED. IV WAS DISCONTINUED. NEW IV REINSERTED BY JERONIMO SMART ON LEFT FOREARM GAUGE 20.
[2022-05-04 16:00] VITALS: BP 117/72
--- NOTE | 2022-05-04 16:03 | NUR ---
RN NOTE CALLED [facility] TO MAKE A FOLLOW-UP REGARDING MEDICAL RECORD REQUEST, BUT OFFICE IS ALREADY CLOSED AT 4 PM. WILL ENDORSE TO SOLAR SALES ADVISOR NURSE RE: FOLLOW-UP CALL.
[2022-05-04 16:26] LABS: BILIRUBIN,URINE NEGATIVE (NEGATIVE); COLOR,URINE YELLOW (YELLOW); LEUKOCYTE ESTERASE ,URINE NEGATIVE (NEGATIVE); NITRITE, URINE NEGATIVE (NEGATIVE); PROTEIN,URINE NEGATIVE (NEGATIVE); UGLUCOSE >=1000 mg/dL (NEGATIVE)
--- NOTE | 2022-05-04 18:58 | NUR ---
RN CLOSING NOTE PATIENT REMAINED STABLE THROUGHOUT SHIFT. TOLERATES OXYGEN VIA NASAL CANNULA AT 3L/MIN. BREATHING UNLABORED AND NOT IN ANY FORM OF DISTRESS. LEFT FOREARM IV LINE INTACT AND PATENT. ALL HOSPITAL SAFETY PRECAUTIONS IN PLACE. WILL ENDORSE TO DIFFUSION FURNACE OPERATOR NURSE.
--- NOTE | 2022-05-04 19:40 | NUR ---
RN OPENING NOTES: RECEIVED PT IN BED, SLEEPING BUT EASILY AROUSABLE. A/O X3-4 AND VERBALLY RESPONSIVE. ON O2 AT 3L/MIN VIA N/C AND PT TOLERATING WELL. IV ACCESS LFA#20G INTACT AND PATENT. RUNNING NS@75ML/HR. NO C/O PAIN OR DISCOMFORT. NO ACUTE DISTRESS. ABLE TO USE URINAL. ALL SAFETY MEASURES IN PLACE. BED IN LOWEST POSITION AND LOCKED. SIDE RAILS UP X2. PLACE CALL LIGHT WITH IN REACH. WILL CONTINUE TO MONITOR.
[2022-05-04 20:00] VITALS: BP 120/69
[2022-05-04] MEDS: ENOXAPARIN SODIUM 40 MG/0.4 ML DISP.SYRIN SQ SCH (22:04)
[2022-05-05] VITALS: BP 129/86
[2022-05-05] MEDS: ACETAMINOPHEN 325 MG TABLET PO PRN ×4 (00:05→22:22)
--- NOTE | 2022-05-05 00:16 | NUR ---
RN NOTES: PT C/O MILD GENERALIZED BODY PAIN, 3/10 PAIN SCALE. TYLENOL 325 MG 2 TABS GIVEN PER PRN ORDERED. PT TOLERATED WELL. WILL CONTINUE TO MONITOR
[2022-05-05] MEDS: VANCOMYCIN 1 GM in IV D5W 250 ML IV SCH ×2 (02:34→14:22)
[2022-05-05] MEDS: IV NS 0.9% 1,000 ML IV PRN ×2 (02:34→22:05)
[2022-05-05 04:00] VITALS: BP 130/87
[2022-05-05] MEDS: PIPERACILLIN /TAZOBACTAM 3.375 G in IV D5W 50 ML IV SCH ×4 (05:22→23:29)
--- NOTE | 2022-05-05 06:42 | NUR ---
RN CLOSING NOTES: PT IN BED,, AWAKE, A/O X3-4 AND VERBALLY RESPONSIVE. ON O2 AT 3L/MIN VIA N/C AND PT TOLERATING WELL. O2 SAT 95%. IV ACCESS LFA#20G INTACT AND PATENT. RUNNING NS@75ML/HR. NO C/O PAIN OR DISCOMFORT. NO ACUTE DISTRESS. NOTED PT'S TEMP INCREASED TO 103.1 F. TYLENOL GIVEN AND COOLING MEASURES PROVIDED. ALL DUE MEDS GIVEN ORDERED. ALL SAFETY MEASURES IN PLACE. BED IN LOWEST POSITION AND LOCKED. SIDE RAILS UP X2. PLACE CALL LIGHT WITH IN REACH. WILL ENDORSE TO MORNING SHIFT NURSE.
[2022-05-05 08:00] VITALS: BP 132/77
--- NOTE | 2022-05-05 08:15 | NUR ---
RN OPENING NOTE PT IS A/O X 3-4, PT ON 3L VIA NC SATING AT 97%. TELE READS ST. IV ACCESS NOTED AT LFA 20G RUNNING NS AT 75ML/HR. ALL SAFETY MEASURES IN PLACE, ALL FALL PRECAUTIONS IN PLACE, WILL CONT TO MONITOR THROUGHOUT SHIFT.
[2022-05-05] MEDS: predniSONE 20 MG TABLET PO SCH (08:32)
[2022-05-05] MEDS: SULFAMETH/TRIMETH 800/160 MG 1 UDTAB TABLET PO SCH (08:33)
[2022-05-05 08:34] LABS: MAGNESIUM 1.7 mg/dL (1.8-2.4); PHOSPHORUS 2.6 mg/dL (2.5-4.9); POTASSIUM 3.6 mmol/L (3.5-5.1)
[2022-05-05 08:43] LABS: BASOPHILS % (AUTO) 0.3 % (0.0-2.0); EOSINOPHILS % (AUTO) 0.7 % (0.0-6.0); HEMATOCRIT 37 % (39-51); HEMOGLOBIN 12.3 g/dL (13.5-17.5); LYMPHOCYTES # (AUTO) 0.3 K/uL (0.8-4.8); MEAN CORPUSCULAR HGB CONC 34 g/dl (31.0-36.0); MEAN CORPUSCULAR VOLUME 92 fL (80-96); MONOCYTES # (AUTO) 0.2 K/uL (0.1-1.30); MONOCYTES % (AUTO) 3.1 % (2.0-12.0); NEUTROPHILS # (AUTO) 7.2 K/uL (1.8-8.9); NEUTROPHILS % (AUTO) 91.9 % (43.0-81.0); PLATELET COUNT (AUTO) 271 K/uL (150-450); RED BLOOD CELL COUNT(AUTO) 4.02 MIL/uL (4.5-6.0); WHITE BLOOD COUNT (AUTO) 7.9 K/uL (4.3-11.0)
[2022-05-05] MEDS: MAGNESIUM HYDROXIDE 30 ML UDC PO PRN ×2 (11:59→17:23)
[2022-05-05 12:00] VITALS: BP 101/65
[2022-05-05 16:00] VITALS: BP 121/72
--- NOTE | 2022-05-05 17:57 | NUR ---
consent signed for bone marrow biopsy and aspiration procedure.
--- NOTE | 2022-05-05 18:44 | NUR ---
RN CLOSING NOTE PT IS A/O X 3-4, PT ON 3L VIA NC SATING AT 97%. TELE READS ST. IV ACCESS NOTED AT LFA 20G RUNNING NS AT 75ML/HR. ALL SAFETY MEASURES IN PLACE, ALL FALL PRECAUTIONS IN PLACE, ALL CONSENTS SIGNED FOR NM WBC SCAN, AND BONE MARROW BIOPSY AND ASPIRATION. WILL ENDORSE TO COVER MACHINE OPERATOR RN FOR MARI.
--- NOTE | 2022-05-05 19:46 | NUR ---
RN OPENING NOTES: RECEIVED PT IN BED, AWAKE, A/O X3-4 AND VERBALLY RESPONSIVE. ON O2 AT 3L/MIN VIA N/C AND PT TOLERATING WELL. IV ACCESS LFA#20G INTACT AND PATENT. RUNNING NS@75ML/HR. NO C/O PAIN OR DISCOMFORT. NO ACUTE DISTRESS. AFEBRILE. ABLE TO USE URINAL WITHOUT ANY DIFFICULTIES. ALL SAFETY MEASURES IN PLACE. BED IN LOWEST POSITION AND LOCKED. SIDE RAILS UP X2. PLACE CALL LIGHT WITH IN REACH. WILL CONTINUE TO MONITOR.
[2022-05-05 20:00] VITALS: BP 114/71
[2022-05-05] MEDS: ENOXAPARIN SODIUM 40 MG/0.4 ML DISP.SYRIN SQ SCH (21:45)
[2022-05-05] MEDS: ZOLPIDEM TARTRATE 5 MG TABLET PO PRN (22:10)
--- NOTE | 2022-05-05 22:14 | NUR ---
RN NOTES: PT C/O UNABLE TO SLEEP. WANT SLEEPING PILL. AMBIEN 5 MG TAB GIVEN PER PRN ORDERED. PT TOLERATED WELL. WILL CONTINUE TO MONITOR
[2022-05-06] VITALS: BP 97/54
[2022-05-06] MEDS: VANCOMYCIN 1 GM in IV D5W 250 ML IV SCH (02:02)
[2022-05-06 04:00] VITALS: BP 115/63
[2022-05-06] MEDS: ACETAMINOPHEN 325 MG TABLET PO PRN ×2 (05:09→15:36)
[2022-05-06] MEDS: PIPERACILLIN /TAZOBACTAM 3.375 G in IV D5W 50 ML IV SCH (05:10)
--- NOTE | 2022-05-06 06:45 | NUR ---
RN CLOSING NOTES: PT IN BED, AWAKE, A/O X3-4 AND VERBALLY RESPONSIVE. ON O2 AT 3L/MIN VIA N/C AND PT TOLERATING WELL. O2 SAT 95%. IV ACCESS LFA#20G INTACT AND PATENT. RUNNING NS@75ML/HR. NO C/O PAIN OR DISCOMFORT. NO ACUTE DISTRESS. NOTED PT'S TEMP INCREASED TO 102.5 F AT 0509. TYLENOL GIVEN AND COOLING MEASURES PROVIDED. ALL DUE MEDS GIVEN ORDERED. ALL SAFETY MEASURES IN PLACE. BED IN LOWEST POSITION AND LOCKED. SIDE RAILS UP X2. PLACE CALL LIGHT WITH IN REACH. WILL ENDORSE TO MORNING SHIFT NURSE.
[2022-05-06] MEDS ORDERED: LIDOCAINE 1% INJ 50 ML MDV IJ ONE (07:00)
[2022-05-06 07:07] LABS: *PEUR ALBUMIN 18.5 % (.); *PEUR ALPHA-2-GLOBULIN 23.6 % (.); *PEUR BETA GLOBULIN 29.8 % (.); *PEUR GAMMA GLOBULIN 23.1 % (.)
[2022-05-06 07:28] LABS: CALCIUM, SERUM 8.6 mg/dL (8.5-10.1); CREATININE 0.9 mg/dL (0.6-1.3); MAGNESIUM 1.7 mg/dL (1.8-2.4); PHOSPHORUS 2.6 mg/dL (2.5-4.9); POTASSIUM 3.7 mmol/L (3.5-5.1)
--- NOTE | 2022-05-06 07:30 | NUR ---
RN receiving Report. PT AOx3-4, able to express his own concerns. States no pain, no signs of distress or discomfort. Patient states he feels tired since he has been feeling sick lately. Discussed plan of care, pt stated no questions, states plan of care was discussed with daughter. Patient agrees with scheduled procedures. Will continue to monitor throughout shift, provide care and prescriptions as ordered. All safety precautions taken, call light and table within reach and bed at lowest position.
[2022-05-06 07:34] LABS: BASOPHILS % (AUTO) 0.5 % (0.0-2.0); EOSINOPHILS % (AUTO) 1.2 % (0.0-6.0); HEMATOCRIT 36 % (39-51); HEMOGLOBIN 12.1 g/dL (13.5-17.5); LYMPHOCYTES # (AUTO) 0.7 K/uL (0.8-4.8); LYMPHOCYTES % (AUTO) 15.2 % (20.0-44.0); MEAN CORPUSCULAR HGB CONC 33 g/dl (31.0-36.0); MEAN CORPUSCULAR VOLUME 90 fL (80-96); MONOCYTES # (AUTO) 0.4 K/uL (0.1-1.30); MONOCYTES % (AUTO) 7.5 % (2.0-12.0); NEUTROPHILS # (AUTO) 3.6 K/uL (1.8-8.9); NEUTROPHILS % (AUTO) 75.6 % (43.0-81.0); PLATELET COUNT (AUTO) 266 K/uL (150-450); RED BLOOD CELL COUNT(AUTO) 4.03 MIL/uL (4.5-6.0); WHITE BLOOD COUNT (AUTO) 4.7 K/uL (4.3-11.0)
[2022-05-06 08:00] VITALS: BP 91/55
[2022-05-06] MEDS ORDERED: [UNRECOGNIZED DRUG - OTHER] PO SCH (09:00)
[2022-05-06] MEDS ORDERED: Medication Not On Formulary EA (Cholecalciferol (Vitamin D3) (Vitamin D3) 5,000 UNIT) PO SCH (09:00)
[2022-05-06] MEDS: predniSONE 20 MG TABLET PO SCH (09:03)
[2022-05-06] MEDS: CHOLECALCIFEROL 1,000 UNIT TABLET (VIT D3) PO SCH (09:03)
[2022-05-06] MEDS: SULFAMETH/TRIMETH 800/160 MG 1 UDTAB TABLET PO SCH (09:03)
[2022-05-06] MEDS: FOLIC ACID 1 MG TABLET PO SCH (09:03)
[2022-05-06] MEDS: MULTIVITAMINS,THERAGRAN 1 UDTAB TABLET PO SCH (09:03)
[2022-05-06] MEDS: PANTOPRAZOLE 40 MG TABLET.DR PO SCH (09:04)
[2022-05-06] MEDS: ENTECAVIR 0.5 MG PO SCH (09:04)
[2022-05-06] MEDS: cetrizine 10 MG TABLET PO SCH (09:07)
[2022-05-06] MEDS ORDERED: MAGNESIUM OXIDE 400 MG TABLET PO ONE (10:00)
[2022-05-06 12:00] VITALS: BP 109/71
[2022-05-06] MEDS ORDERED: MISCELLANEOUS MED 1 EA EA XX ONE (12:00)
[2022-05-06] MEDS: MEROPENEM 1 G in IV NS 0.9% 100 ML IV SCH ×2 (13:30→20:55)
[2022-05-06 16:00] VITALS: BP 120/72
[2022-05-06] MEDS ORDERED: MORPHINE SULFATE INJ 2 MG/ML DISP.SYRIN IV STA (18:21)
[2022-05-06] MEDS ORDERED: LORAZEPAM 1 MG TABLET PO PRN (18:30)
[2022-05-06] MEDS: MORPHINE SULFATE INJ 2 MG/ML DISP.SYRIN IV PRN (18:33)
--- NOTE | 2022-05-06 19:23 | NUR ---
RN Closing Note PT AOx4, able to express his own concerns. is at bedside providing comfort, able to communicate and express his needs. Patient stated he had not had a bowel movement, prune juice given, patient was able to walk to the bathroom with assistance and had bowel movement, states he feel better. All safety precautions taken, patient remained safe throughout shift, no incidents throughout shift. Call light within reach and bed at lowest position.
--- NOTE | 2022-05-06 19:30 | NUR ---
RN NOTES RECEIVED REPORT FROM MORNING NURSE. PATIENT IN BED A/O X 3 AT BEDSIDE. S/P BONE MARROW ASPIRATION BY DR BONDS.SPECIMEN AT BEDSIDE.
[2022-05-06 20:00] VITALS: BP 103/65
--- NOTE | 2022-05-06 20:15 | NUR ---
RN NOTES SPECIMEN GIVEN TO LABORATORY. ENDORSED TO ADRIANA DECKER FOR MARI
--- NOTE | 2022-05-06 20:18 | NUR ---
RN NOTE RECEIVED REPORT FROM GEOVANY. PT IN BED, AWAKE AND RESTING. NO S/SX OF ACUTE DISTRESS NOTED AT THIS TIME. WILL CONTINUE TO MONITOR AND REASSESS FOR ANY CHANGES THROUGHOUT THE NIGHT.
[2022-05-06 20:34] LABS: BASOPHILS % (AUTO) 0.2 % (0.0-2.0); EOSINOPHILS % (AUTO) 0.1 % (0.0-6.0); HEMATOCRIT 36 % (39-51); HEMOGLOBIN 11.9 g/dL (13.5-17.5); LYMPHOCYTES # (AUTO) 0.5 K/uL (0.8-4.8); LYMPHOCYTES % (AUTO) 14.5 % (20.0-44.0); MEAN CORPUSCULAR HGB CONC 33 g/dl (31.0-36.0); MEAN CORPUSCULAR VOLUME 92 fL (80-96); MONOCYTES # (AUTO) 0.2 K/uL (0.1-1.30); MONOCYTES % (AUTO) 5.6 % (2.0-12.0); NEUTROPHILS # (AUTO) 2.5 K/uL (1.8-8.9); NEUTROPHILS % (AUTO) 79.6 % (43.0-81.0); PLATELET COUNT (AUTO) 246 K/uL (150-450); RED BLOOD CELL COUNT(AUTO) 3.88 MIL/uL (4.5-6.0); WHITE BLOOD COUNT (AUTO) 3.1 K/uL (4.3-11.0)
[2022-05-06] MEDS: ENOXAPARIN SODIUM 40 MG/0.4 ML DISP.SYRIN SQ SCH (21:05)
[2022-05-07] VITALS: BP 104/73
[2022-05-07] MEDS: IV NS 0.9% 1,000 ML IV PRN ×2 (00:13→15:13)
[2022-05-07] MEDS: ACETAMINOPHEN 325 MG TABLET PO PRN ×3 (02:02→21:02)
--- NOTE | 2022-05-07 02:10 | NUR ---
RN NOTE PT HAS A FEVER AT 102.1 HR WAS >150. ASKED PT IF HE IS IN PAIN, AND HE DENIED. TYLENOL PRN GIVEN ORDERED AND COLD BATH PROVIDED. WILL REASSESS PT IN 30 MINUTES.
[2022-05-07] MEDS: ZOLPIDEM TARTRATE 5 MG TABLET PO PRN (02:26)
--- NOTE | 2022-05-07 02:45 | NUR ---
RN NOTE PT STILL HAS FEVER BUT HR WENT DOWN TO 110s. PT SHOWS NO ACUTE RESPI DISTRESS UPON ASSESSMENT. PT ALSO ASKED FOR AMBIEN. GIVEN AND CARRIED OUT. WILL CONTINUE TO MONITOR CLOSELY.
[2022-05-07 04:00] VITALS: BP 97/60
[2022-05-07] MEDS: MEROPENEM 1 G in IV NS 0.9% 100 ML IV SCH ×3 (04:12→21:02)
[2022-05-07 05:58] LABS: BASOPHILS % (AUTO) 0.4 % (0.0-2.0); EOSINOPHILS % (AUTO) 1.3 % (0.0-6.0); HEMATOCRIT 36 % (39-51); LYMPHOCYTES # (AUTO) 0.6 K/uL (0.8-4.8); LYMPHOCYTES % (AUTO) 8.9 % (20.0-44.0); MEAN CORPUSCULAR HGB CONC 34 g/dl (31.0-36.0); MEAN CORPUSCULAR VOLUME 90 fL (80-96); MONOCYTES # (AUTO) 0.6 K/uL (0.1-1.30); MONOCYTES % (AUTO) 8.3 % (2.0-12.0); NEUTROPHILS # (AUTO) 5.7 K/uL (1.8-8.9); NEUTROPHILS % (AUTO) 81.1 % (43.0-81.0); PLATELET COUNT (AUTO) 266 K/uL (150-450); RED BLOOD CELL COUNT(AUTO) 3.94 MIL/uL (4.5-6.0)
--- NOTE | 2022-05-07 06:33 | NUR ---
RN NOTE PT STILL SINUS TACHY BUT FEVER ALREADY WENT DOWN TO 98.8. OTHER VS STABLE. PT REPORTS NO PAIN OR SOB. O2 SAT IS >96%. WILL ENDORSE TO AM SHIFT NURSE FOR MARI.
[2022-05-07 06:45] LABS: CALCIUM, SERUM 8.9 mg/dL (8.5-10.1); CREATININE 1.2 mg/dL (0.6-1.3); PHOSPHORUS 3.3 mg/dL (2.5-4.9); POTASSIUM 3.9 mmol/L (3.5-5.1)
--- NOTE | 2022-05-07 07:25 | NUR ---
SHOULDER BONER OPENING NOTES: RECEIVED PATIENT IN BED, AWAKE, ALERT, ORIENTED X 3. ON OXYGEN @ 3L/MIN VIA N/C WITH OXYGEN SATURATION OF 100%. ON ST WITH HR OF 131 ON TELE MONITOR. NO SOB AND NO RESPIRATORY DISTRESS NOTED. HAS NS RUNNING @ 75 ML/HR VIA LEFT FOREARM, SITE PATENT, INTACT, NO S/S INFILTRATION. NO BLEEDING NOTED ON LUMBAR AREA. BED LOCKED AND IN LOWEST POSITION. CALL LIGHT WITHIN REACH. ALL SAFETY MEASURES IMPLEMENTED. WILL CONTINUE TO MONITOR PATIENT THROUGHOUT SHIFT. PATIENT USES URINAL.
[2022-05-07] MEDS: PANTOPRAZOLE 40 MG TABLET.DR PO SCH (07:50)
[2022-05-07 08:00] VITALS: BP 131/64
--- NOTE | 2022-05-07 08:01 | NUR ---
PATIENT WAS NOTED TO HAVE NON SUSTAINED ST WITH HR OF 140. CHECKED PATIENT AND DENIES ANY PAIN OR DISCOMFORT. PATIENT IS AWAKE, ALERT, ORIENTED X 4. WILL CONTINUE TO MONITOR PATIENT THROUGHOUT SHIFT.
[2022-05-07] MEDS: SULFAMETH/TRIMETH 800/160 MG 1 UDTAB TABLET PO SCH (09:02)
[2022-05-07] MEDS: FOLIC ACID 1 MG TABLET PO SCH (09:03)
[2022-05-07] MEDS: predniSONE 20 MG TABLET PO SCH (09:03)
[2022-05-07] MEDS: cetrizine 10 MG TABLET PO SCH (09:03)
[2022-05-07] MEDS: CHOLECALCIFEROL 1,000 UNIT TABLET (VIT D3) PO SCH (09:03)
[2022-05-07] MEDS: ENTECAVIR 0.5 MG PO SCH (09:04)
[2022-05-07] MEDS: MULTIVITAMINS,THERAGRAN 1 UDTAB TABLET PO SCH (09:04)
--- NOTE | 2022-05-07 11:30 | NUR ---
PATIENT NOTED TO HAVE A FEVER OF 102.3, GAVE TYLENOL ORDERED AND PROVIDED COOLING MEASURES. WILL CONTINUE TO ASSESS THE PATIENT.
[2022-05-07 12:00] VITALS: BP 98/63
--- NOTE | 2022-05-07 12:30 | NUR ---
RECHECKED TEMP AND IT WAS 99.8. PATIENT IN NO ACUTE DISTRESS NOTED.
--- NOTE | 2022-05-07 15:06 | NUR ---
PATIENT'S BACK IN THE ROOM AFTER NUCLEAR MED PROCEDURE. PLACED ON TELE MONITOR WITH ST HR OF 105
[2022-05-07 16:00] VITALS: BP 92/54
--- NOTE | 2022-05-07 18:46 | NUR ---
AGRICULTURAL ECONOMICS PROFESSOR CLOSING NOTES: PATIENT IN BED, ASLEEP BUT EASILY AROUSES TO VOICE AND TACTILE STIMULI. NO SOB NOTED, BREATHING EVEN AND UNLABORED. ON OXYGEN @ 3L/MIN VIA N/C WITH OXYGEN SATURATION OF 98%. ON ST ON TELE MONITOR WITH HR OF 108. HAS NS RUNNING @ 75 ML/HR VIA LEFT FOREARM, SITE PATENT AND NO S/S INFILTRATION NOTED. PATIENT USED URINAL AND VOIDED 1225 ML OF YELLOW COLORED URINE, NO HEMATURIA AND NO SEDIMENTATION NOTED. NO PAIN OR DISCOMFORT AT THIS TIME, ORAL TEMP 98.5. CALL LIGHT WITHIN REACH. ALL SAFETY MEASURES IMPLEMENTED. WILL ENDORSE TO NEXT SHIFT NURSE FOR CONTINUITY OF CARE.
[2022-05-07 20:00] VITALS: BP 119/74
[2022-05-07] MEDS: ENOXAPARIN SODIUM 40 MG/0.4 ML DISP.SYRIN SQ SCH (21:03)
[2022-05-08] VITALS (7 sets, daily range): BP systolic 89–111; BP diastolic 56–73
[2022-05-08] MEDS: MEROPENEM 1 G in IV NS 0.9% 100 ML IV SCH ×3 (05:12→21:06)
[2022-05-08] MEDS: IV NS 0.9% 1,000 ML IV PRN (05:14)
[2022-05-08] MEDS: ACETAMINOPHEN 325 MG TABLET PO PRN ×3 (05:34→23:50)
[2022-05-08 05:59] LABS: BASOPHILS % (AUTO) 0.4 % (0.0-2.0); HEMATOCRIT 37 % (39-51); HEMOGLOBIN 12.1 g/dL (13.5-17.5); LYMPHOCYTES # (AUTO) 0.8 K/uL (0.8-4.8); LYMPHOCYTES % (AUTO) 12.5 % (20.0-44.0); MEAN CORPUSCULAR HGB CONC 33 g/dl (31.0-36.0); MEAN CORPUSCULAR VOLUME 92 fL (80-96); MONOCYTES # (AUTO) 0.5 K/uL (0.1-1.30); MONOCYTES % (AUTO) 7.6 % (2.0-12.0); NEUTROPHILS # (AUTO) 4.6 K/uL (1.8-8.9); NEUTROPHILS % (AUTO) 76.5 % (43.0-81.0); PLATELET COUNT (AUTO) 263 K/uL (150-450)
[2022-05-08 06:48] LABS: CALCIUM, SERUM 9.2 mg/dL (8.5-10.1); CREATININE 0.9 mg/dL (0.6-1.3); PHOSPHORUS 2.4 mg/dL (2.5-4.9); POTASSIUM 4.1 mmol/L (3.5-5.1)
--- NOTE | 2022-05-08 06:55 | NUR ---
RN CLOSING NOTES: PT IN BED, AWAKE, A/O X3-4 AND VERBALLY RESPONSIVE. ON O2 AT 3L/MIN VIA N/C AND PT TOLERATING WELL. O2 SAT 95%. IV ACCESS LFA#20G INTACT AND PATENT. RUNNING NS@75ML/HR. NO C/O PAIN OR DISCOMFORT. NO ACUTE DISTRESS NO EPISODE OF FEVER THIS TIME. TYLENOL GIVEN AND COOLING MEASURES PROVIDED. ALL DUE MEDS GIVEN ORDERED. ALL SAFETY MEASURES IN PLACE. BED IN LOWEST POSITION AND LOCKED. SIDE RAILS UP X2. PLACE CALL LIGHT WITH IN REACH. WILL ENDORSE TO MORNING SHIFT NURSE.
--- NOTE | 2022-05-08 07:33 | NUR ---
RN OPENING NOTES: RECEIVED PT IN BED, . A/O X3-4 AND VERBALLY RESPONSIVE. ON O2 AT 3L/MIN VIA N/C AND PT TOLERATING WELL.NO SIGHS OF DISTRESS IV ACCESS LFA#20G INTACT AND PATENT. RUNNING NS@75ML/HR. NO C/O PAIN OR DISCOMFORT. NO ACUTE DISTRESS. ABLE TO USE URINAL. ALL SAFETY MEASURES IN PLACE. BED IN LOWEST POSITION AND LOCKED. SIDE RAILS UP X2. PLACE CALL LIGHT WITH IN REACH. WILL CONTINUE TO MONITOR.
[2022-05-08] MEDS: ENTECAVIR 0.5 MG PO SCH (08:33)
[2022-05-08] MEDS: MULTIVITAMINS,THERAGRAN 1 UDTAB TABLET PO SCH (08:34)
[2022-05-08] MEDS: FOLIC ACID 1 MG TABLET PO SCH (08:34)
[2022-05-08] MEDS: cetrizine 10 MG TABLET PO SCH (08:34)
[2022-05-08] MEDS: SULFAMETH/TRIMETH 800/160 MG 1 UDTAB TABLET PO SCH (08:34)
[2022-05-08] MEDS: predniSONE 20 MG TABLET PO SCH (08:34)
[2022-05-08] MEDS: CHOLECALCIFEROL 1,000 UNIT TABLET (VIT D3) PO SCH (08:34)
[2022-05-08] MEDS: PANTOPRAZOLE 40 MG TABLET.DR PO SCH (08:35)
[2022-05-08] MEDS ORDERED: K PHOS NEUTRAL 250 MG TABLET PO ONE (14:00)
--- NOTE | 2022-05-08 18:58 | NUR ---
RN CLOSING NOTES: PT IN BED, AWAKE, A/O X3-4 AND VERBALLY RESPONSIVE. ON O2 AT 3L/MIN VIA N/C AND PT TOLERATING WELL. O2 SAT 98%. IV ACCESS RFA#22G INTACT AND PATENT. RUNNING NS@75ML/HR. NO C/O PAIN OR DISCOMFORT. NO ACUTE DISTRESS NO EPISODE OF FEVER THIS TIME. ALL DUE MEDS GIVEN ORDERED. ALL SAFETY MEASURES IN PLACE. BED IN LOWEST POSITION AND LOCKED. SIDE RAILS UP X2. PLACE CALL LIGHT WITH IN REACH. WILL ENDORSE TO AUTO BODY WORKER NURSE.
--- NOTE | 2022-05-08 19:10 | NUR ---
RN OPENING NOTES: RECEIVED PT IN BED, SLEEPING BUT EASILY AROUSABLE. A/O X3-4 AND VERBALLY RESPONSIVE. ON O2 AT 3L/MIN VIA N/C AND PT TOLERATING WELL. IV ACCESS RFA#22G INTACT AND PATENT. RUNNING NS@75ML/HR. NO C/O PAIN OR DISCOMFORT. NO ACUTE DISTRESS. ABLE TO USE URINAL. ALL SAFETY MEASURES IN PLACE. BED IN LOWEST POSITION AND LOCKED. SIDE RAILS UP X2. PLACE CALL LIGHT WITH IN REACH. WILL CONTINUE TO MONITOR.
[2022-05-08] MEDS: ENOXAPARIN SODIUM 40 MG/0.4 ML DISP.SYRIN SQ SCH (21:13)
[2022-05-08] MEDS: ZOLPIDEM TARTRATE 5 MG TABLET PO PRN (21:14)
[2022-05-09] VITALS: BP 110/62
[2022-05-09] MEDS: IV NS 0.9% 1,000 ML IV PRN ×2 (01:16→16:38)
[2022-05-09 04:00] VITALS: BP 92/56
[2022-05-09] MEDS: MEROPENEM 1 G in IV NS 0.9% 100 ML IV SCH ×3 (05:03→21:26)
[2022-05-09 07:18] LABS: BASOPHILS # (AUTO) 0.1 K/uL (0.0-0.2); BASOPHILS % (AUTO) 1.1 % (0.0-2.0); EOSINOPHILS % (AUTO) 3.7 % (0.0-6.0); HEMATOCRIT 36 % (39-51); LYMPHOCYTES % (AUTO) 18.8 % (20.0-44.0); MEAN CORPUSCULAR HGB CONC 34 g/dl (31.0-36.0); MEAN CORPUSCULAR VOLUME 91 fL (80-96); MONOCYTES # (AUTO) 0.5 K/uL (0.1-1.30); MONOCYTES % (AUTO) 8.8 % (2.0-12.0); NEUTROPHILS # (AUTO) 3.7 K/uL (1.8-8.9); NEUTROPHILS % (AUTO) 67.6 % (43.0-81.0); PLATELET COUNT (AUTO) 245 K/uL (150-450); RED BLOOD CELL COUNT(AUTO) 3.93 MIL/uL (4.5-6.0); WHITE BLOOD COUNT (AUTO) 5.5 K/uL (4.3-11.0)
--- NOTE | 2022-05-09 07:28 | NUR ---
AM GRAIN COMBINE DRIVER OPENING NOTES: RECEIVED PATIENT IN BED, AWAKE, ALERT, ORIENTED X 3. NO SOB NOTED, BREATHING EVEN AND UNLABORED. ON OXYGEN @ 3L/MIN VIA N/C WITH OXYGEN SATURATION OF 98%. ON ST ON TELE MONITOR WITH HR OF 112. PATIENT HAS IV ACCESS ON RIGHT FOREARM RUNNING WITH NS @ 75 ML/HR, SITE PATENT AND NO S/S OF INFILTRATION. CALL LIGHT WITHIN REACH. BED LOCKED AND IN LOWEST POSITION. ALL SAFETY MEASURES IN PLACE. WILL CONTINUE TO MONITOR PATIENT THROUGHOUT SHIFT.
[2022-05-09] MEDS: PANTOPRAZOLE 40 MG TABLET.DR PO SCH (07:44)
[2022-05-09 08:00] VITALS: BP 115/68
[2022-05-09 08:23] LABS: CREATININE 0.8 mg/dL (0.6-1.3); MAGNESIUM 2.3 mg/dL (1.8-2.4); PHOSPHORUS 2.7 mg/dL (2.5-4.9); POTASSIUM 4.4 mmol/L (3.5-5.1)
[2022-05-09] MEDS: SULFAMETH/TRIMETH 800/160 MG 1 UDTAB TABLET PO SCH (08:33)
[2022-05-09] MEDS: predniSONE 20 MG TABLET PO SCH (08:33)
[2022-05-09] MEDS: cetrizine 10 MG TABLET PO SCH (08:33)
[2022-05-09] MEDS: CHOLECALCIFEROL 1,000 UNIT TABLET (VIT D3) PO SCH (08:33)
[2022-05-09] MEDS: FOLIC ACID 1 MG TABLET PO SCH (08:33)
[2022-05-09] MEDS: MULTIVITAMINS,THERAGRAN 1 UDTAB TABLET PO SCH (08:33)
[2022-05-09] MEDS: ENTECAVIR 0.5 MG PO SCH (08:34)
[2022-05-09 12:00] VITALS: BP 144/78
--- NOTE | 2022-05-09 14:56 | NUR ---
COLLECTED URINE SAMPLE PER MD'S PREVIOUS ORDER FOR URINE CULTURE. PLACED IN THE REFRIGERATOR SPECIMEN, CALLED [facility] [id number], SPOKE WITH CHRIS TO PLEASE BLOW MOLDING MACHINE TENDER THE SPECIMEN LATER.
[2022-05-09] MEDS ORDERED: PHENAZOPYRIDINE HCL 200 MG TABLET PO PRN (15:30)
[2022-05-09 16:00] VITALS: BP 100/56
--- NOTE | 2022-05-09 18:45 | NUR ---
DOG GROOMER CLOSING NOTES: PATIENT IN BED, ASLEEP BUT EASILY AROUSES TO VOICE AND TOUCH. NO SOB NOTED. ON OXYGEN @ 3L/MIN VIA N/C WITH OXYGEN SATURATION OF 97%. PATIENT IS ON SR ON TELE MONITOR WITH HR OF 98. ON NS RUNNING @ 75 ML/HR VIA RIGHT FOREARM, SITE PATENT, NO S/S OF INFILTRATION NOTED. PATIENT VOIDED WITH THE USE OF URINAL AND EMPTIED 1600 OF YELLOW COLORED URINE, NO HEMATURIA AND NO SEDIMENTATION NOTED. PATIENT DENIES ANY DYSURIA AT THIS TIME. CALL LIGHT WITHIN REACH, BED LOCKED AND IN LOWEST POSITION. PATIENT REMAINS AFEBRILE THROUGHOUT AM SHIFT. WILL ENDORSE TO NEXT SHIFT NURSE FOR CONTINUITY OF CARE. .
[2022-05-09 20:00] VITALS: BP 116/62
--- NOTE | 2022-05-09 20:00 | NUR ---
TELE OPEN NOTE: ALERT AND ORIENTED TIMES 3. UNLABORED BREATHING, ON 02 3LPM NC, 02 SAT AT 97 %. MOIST ORAL MUCOSA. TELE READING OF SINUS RHYTHM 93. IVF OF NS 75 ML/HR ON RIGHT FOREARM G22, IV PATENT NO S/S OF COMPLICATIONS. DECLINES PAIN OR DISCOMFORT. REPOSITIONED WITH PILLOWS. HOB ELEVATED AT 30 DEGREE ANGLE, BED IS LOCKED, EXIT ALARM ON, BED IN LOW POSITION. BILATERAL HALF SIDE RAIL UP X2. CALL LIGHT IN REACH.
[2022-05-09] MEDS: ENOXAPARIN SODIUM 40 MG/0.4 ML DISP.SYRIN SQ SCH (21:26)
[2022-05-10] VITALS: BP 108/67
[2022-05-10 04:00] VITALS: BP 105/52
[2022-05-10] MEDS: MEROPENEM 1 G in IV NS 0.9% 100 ML IV SCH ×3 (04:06→22:20)
[2022-05-10] MEDS: IV NS 0.9% 1,000 ML IV PRN ×2 (04:44→22:59)
--- NOTE | 2022-05-10 06:42 | NUR ---
TELE CLOSE NOTE: ALERT AND ORIENTED TIMES 3. UNLABORED BREATHING, ON 02 3LPM NC, 02 SAT AT 97 %. MOIST ORAL MUCOSA. TELE READING OF SINUS RHYTHM 85. ON ABX IV WITH NO A/R. IVF OF NS 75 ML/HR ON RIGHT FOREARM G22, IV PATENT NO S/S OF COMPLICATIONS. DECLINES PAIN OR DISCOMFORT. REPOSITIONED WITH PILLOWS. HOB ELEVATED AT 30 DEGREE ANGLE, BED IS LOCKED, EXIT ALARM ON, BED IN LOW POSITION. BILATERAL HALF SIDE RAIL UP X2. CALL LIGHT IN REACH.
--- NOTE | 2022-05-10 07:28 | NUR ---
AM PATTERNMAKER APPRENTICE WOOD OPENING NOTES: RECEIVED PATIENT IN BED, ASLEEP BUT EASILY AROUSES TO VOICE AND TACTILE STIMULI. PATIENT IS ALERT, ORIENTED X 3. NO RESPIRATORY DISTRESS NOTED. ON OXYGEN @ 3L/MIN VIA N/C WITH OXYGEN SATURATION OF 100%. ON SR ON TELE MONITOR WITH HR OF 83. PATIENT HAS IV ACCESS ON RIGHT FOREARM RUNNING WITH NS @ 75 ML/HR, SITE PATENT AND NO S/S OF INFILTRATION NOTED. BED LOCKED AND IN LOWEST POSITION. CALL LIGHT WITHIN REACH. ALL SAFETY MEASURES IMPLEMENTED. WILL CONTINUE TO MONITOR PATIENT THROUGHOUT SHIFT.
[2022-05-10] MEDS: PANTOPRAZOLE 40 MG TABLET.DR PO SCH (07:33)
[2022-05-10 07:38] LABS: BASOPHILS # (AUTO) 0.1 K/uL (0.0-0.2); EOSINOPHILS % (AUTO) 2.8 % (0.0-6.0); HEMATOCRIT 35 % (39-51); HEMOGLOBIN 11.6 g/dL (13.5-17.5); LYMPHOCYTES # (AUTO) 2.8 K/uL (0.8-4.8); LYMPHOCYTES % (AUTO) 34.6 % (20.0-44.0); MEAN CORPUSCULAR HGB CONC 33 g/dl (31.0-36.0); MEAN CORPUSCULAR VOLUME 91 fL (80-96); MONOCYTES % (AUTO) 11.8 % (2.0-12.0); NEUTROPHILS # (AUTO) 4.1 K/uL (1.8-8.9); NEUTROPHILS % (AUTO) 49.8 % (43.0-81.0); PLATELET COUNT (AUTO) 281 K/uL (150-450); RED BLOOD CELL COUNT(AUTO) 3.82 MIL/uL (4.5-6.0); WHITE BLOOD COUNT (AUTO) 8.2 K/uL (4.3-11.0)
[2022-05-10 08:00] VITALS: BP 102/60
[2022-05-10 08:04] LABS: CALCIUM, SERUM 8.7 mg/dL (8.5-10.1); CREATININE 0.9 mg/dL (0.6-1.3); MAGNESIUM 2.1 mg/dL (1.8-2.4); PHOSPHORUS 2.3 mg/dL (2.5-4.9); POTASSIUM 3.6 mmol/L (3.5-5.1)
[2022-05-10] MEDS: SULFAMETH/TRIMETH 800/160 MG 1 UDTAB TABLET PO SCH (08:21)
[2022-05-10] MEDS: predniSONE 20 MG TABLET PO SCH (08:22)
[2022-05-10] MEDS: CHOLECALCIFEROL 1,000 UNIT TABLET (VIT D3) PO SCH (08:23)
[2022-05-10] MEDS: FOLIC ACID 1 MG TABLET PO SCH (08:23)
[2022-05-10] MEDS: ENTECAVIR 0.5 MG PO SCH (08:23)
[2022-05-10] MEDS: MULTIVITAMINS,THERAGRAN 1 UDTAB TABLET PO SCH (08:23)
[2022-05-10] MEDS: cetrizine 10 MG TABLET PO SCH (08:23)
[2022-05-10 09:06] LABS: *ANA ANTI-CENTROMERE B AB <0.2 AI (0.0-0.9); *ANA ANTI-DNA(DS) AB, QN 1 IU/mL (0-9); *ANA ANTI-JO-1 <0.2 AI (0.0-0.9); *ANA ANTICHROMATIN ANTIBODY <0.2 AI (0.0-0.9); *ANA RNP ANTIBODIES <0.2 AI (0.0-0.9); *ANA SJOGREN'S ANTI-SS-A <0.2 AI (0.0-0.9); *ANA SJOGREN'S ANTI-SS-B <0.2 AI (0.0-0.9); *ANAANTI-SCLERODERMA-70 AB <0.2 AI (0.0-0.9); *ANASMITH AB <0.2 AI (0.0-0.9)
[2022-05-10 12:00] VITALS: BP 97/49
[2022-05-10] MEDS ORDERED: K PHOS NEUTRAL 250 MG TABLET PO ONE (12:30)
[2022-05-10] MEDS ORDERED: MERO1PIG IV (13:37)
[2022-05-10] MEDS ORDERED: PRED20TA PO (14:33)
[2022-05-10 16:00] VITALS: BP 113/64
--- NOTE | 2022-05-10 18:50 | NUR ---
SAMPLE WEAVER CLOSING NOTES: PATIENT IN BED, ASLEEP BUT EASILY AROUSES TO VOICE AND TOUCH. ON OXYGEN @ 3L/MIN VIA N/C WITH OXYGEN SATURATION OF 96%. NO SOB NOTED, BREATHING EVEN AND UNLABORED. PATIENT IS ON SR ON TELE MONITOR WITH HR OF 91. PATIENT HAS NS RUNNING @ 75 ML/HR VIA RIGHT ANTECUBITAL AREA, SITE PATENT, NO S/S OF INFILTRATION NOTED. PATIENT VOIDED WITH THE USE OF URINAL AND EMPTIED 1875 OF YELLOW COLORED URINE, NO HEMATURIA AND NO SEDIMENTATION NOTED. CALL LIGHT WITHIN REACH, BED LOCKED AND IN LOWEST POSITION. PATIENT REMAINS AFEBRILE THROUGHOUT SHIFT. WILL ENDORSE TO NEXT SHIFT NURSE FOR CONTINUITY OF CARE. .
[2022-05-10 20:00] VITALS: BP 98/58
--- NOTE | 2022-05-10 20:00 | NUR ---
INSTRUMENT MECHANIC OPEN NOTE: ALERT AND ORIENTED TIMES 3. UNLABORED BREATHING, ON 02 3LPM NC, 02 SAT AT 96 %. MOIST ORAL MUCOSA. TELE READING OF SINUS RHYTHM 93. IVF OF NS 75 ML/HR ON RIGHT AC G22, IV PATENT NO S/S OF COMPLICATIONS. DECLINES PAIN OR DISCOMFORT. REPOSITIONED WITH PILLOWS. HOB ELEVATED SEMI-MIRELES'S POSITION, BED IS LOCKED, EXIT ALARM ON, BED IN LOW POSITION. BILATERAL HALF SIDE RAIL UP X2. CALL LIGHT IN REACH. Addendum: 05/11/22 at 0223 by JUVENTINO GALLOWAY RN LEFT FOREARM IV WITH NO S/S OF COMPLICATIONS.
[2022-05-10] MEDS: ACETAMINOPHEN 325 MG TABLET PO PRN (22:23)
[2022-05-10] MEDS: ENOXAPARIN SODIUM 40 MG/0.4 ML DISP.SYRIN SQ SCH (22:59)
[2022-05-11] VITALS: BP 95/60
[2022-05-11 04:00] VITALS: BP 95/58
[2022-05-11] MEDS: MEROPENEM 1 G in IV NS 0.9% 100 ML IV SCH (04:10)
--- NOTE | 2022-05-11 06:55 | NUR ---
COAL SHOOTER CLOSING NOTE: ALERT AND ORIENTED TIMES 3. UNLABORED BREATHING, ON 02 3LPM NC, 02 SAT AT 96 %. MOIST ORAL MUCOSA. TELE READING OF SINUS RHYTHM 90. IVF OF NS 75 ML/HR ON RIGHT AC G22 AND LEFT FOREARM IV, PATENT NO S/S OF COMPLICATIONS. CONTINUES ON ABX IV WITH NO A/R. DECLINES PAIN OR DISCOMFORT. REPOSITIONED WITH PILLOWS. HOB ELEVATED SEMI-MIRELES'S POSITION, BED IS LOCKED, EXIT ALARM ON, BED IN LOW POSITION. BILATERAL HALF SIDE RAIL UP X2. CALL LIGHT IN REACH.
[2022-05-11 08:00] VITALS: BP 97/57
[2022-05-11] MEDS: predniSONE 20 MG TABLET PO SCH (08:14)
[2022-05-11] MEDS: CHOLECALCIFEROL 1,000 UNIT TABLET (VIT D3) PO SCH (08:14)
[2022-05-11] MEDS: FOLIC ACID 1 MG TABLET PO SCH (08:14)
[2022-05-11] MEDS: MULTIVITAMINS,THERAGRAN 1 UDTAB TABLET PO SCH (08:14)
[2022-05-11] MEDS: ENTECAVIR 0.5 MG PO SCH (08:15)
[2022-05-11] MEDS: PANTOPRAZOLE 40 MG TABLET.DR PO SCH (08:15)
[2022-05-11] MEDS: cetrizine 10 MG TABLET PO SCH (08:15)
[2022-05-11] MEDS: SULFAMETH/TRIMETH 800/160 MG 1 UDTAB TABLET PO SCH (08:15)
--- NOTE | 2022-05-11 09:26 | NUR ---
Discharge Home Today. to pick up attendant patient Pt [id number]. No distress noted Discharge Instructions given IV HL to RAC and L wrist removed Pt dressed and ready. sitting up comfortably. Waiting for family/ at this time.
== END 2022-05-11 09:26 | disposition home or self-care (01) | DRG 872 ==
LOC: ER 22:45 → TRANSITION 05-03 03:08 → TELE1 05-03 09:35
PROVIDERS: ATTEND Student in an Organized Health Care Education/Training Program
PROC: 07DR3ZX Extraction of Iliac Bone Marrow, Percutaneous Approach, Diagnostic (ICD-10-PCS; principal; 2022-05-06)
DX: A41.9 Sepsis, unspecified organism (principal); C34.90 Malignant neoplasm of unspecified part of unspecified bronchus or lung; E87.1 Hypo-osmolality and hyponatremia; C79.31 Secondary malignant neoplasm of brain; J98.11 Atelectasis; D84.9 Immunodeficiency, unspecified; N39.0 Urinary tract infection, site not specified; C79.72 Secondary malignant neoplasm of left adrenal gland; C79.71 Secondary malignant neoplasm of right adrenal gland; Z85.118 Personal history of other malignant neoplasm of bronchus and lung; R65.20 Severe sepsis without septic shock; Z20.822 Contact with and (suspected) exposure to COVID-19; K21.9 Gastro-esophageal reflux disease without esophagitis; Z79.899 Other long term (current) drug therapy; E88.09 Other disorders of plasma-protein metabolism, not elsewhere classified; I25.10 Atherosclerotic heart disease of native coronary artery without angina pectoris; J43.2 Centrilobular emphysema; D64.9 Anemia, unspecified; K42.9 Umbilical hernia without obstruction or gangrene; K44.9 Diaphragmatic hernia without obstruction or gangrene; K57.90 Diverticulosis of intestine, part unspecified, without perforation or abscess without bleeding; Z87.891 Personal history of nicotine dependence; R79.89 Other specified abnormal findings of blood chemistry; T50.995A Adverse effect of other drugs, medicaments and biological substances, initial encounter; Y92.009 Unspecified place in unspecified non-institutional (private) residence as the place of occurrence of the external cause; M79.7 Fibromyalgia; Z86.19 Personal history of other infectious and parasitic diseases
CPT/HCPCS: 36415; 71045-TC; 76770-TC; 77075-TC; 78802-TC; 80048-TC; 80076-TC; 80202-TC; 82232; 82784; 83605-TC; 83735-TC; 84100-TC; 84153-TC; 84156; 84166; 84443-TC; 84484-TC; 85025-TC; 85610-TC; 85730-TC; 86140-TC; 86225; 86235; 86334; 86431-TC; 86664; 86704; 86803; 87040-TC; 87081-TC; 87086-TC; 87340; 87806; 93307-TC; 94799-TC; 97112-TC; 97116-TC; 97530-TC; A6403; A9556; C9803; G0378; J1650; J2185; J2270; J2405; J2543; J3370; J3475; J3490; J7030; J7050; J7060; J7120; U0003

== ENCOUNTER 2022-05-14 10:54 | Outpatient (CLI) | payer MEDICARE, OTHER | END 2022-05-14 23:59 | disposition home or self-care (01) | LOC: MSC 10:54 | PROVIDERS: ATTEND Internal Medicine | DX: R30.9 Painful micturition, unspecified (principal); R35.1 Nocturia; C34.90 Malignant neoplasm of unspecified part of unspecified bronchus or lung; Z92.21 Personal history of antineoplastic chemotherapy; E27.9 Disorder of adrenal gland, unspecified; E87.1 Hypo-osmolality and hyponatremia; R79.89 Other specified abnormal findings of blood chemistry; K44.9 Diaphragmatic hernia without obstruction or gangrene; K42.9 Umbilical hernia without obstruction or gangrene ==

== ENCOUNTER 2023-12-12 03:37 | Inpatient (IN) | payer MEDICARE, MEDICAID ==
[~2023-12-12] VITALS: Ht 167.6 cm; Wt 59.0 kg
[2023-12-12] VITALS (12 sets, daily range): BP systolic 118–150; BP diastolic 70–92; TEMP 97.7–99.5; O2SAT 94–100
[2023-12-12] MEDS ORDERED: methylPREDNISolone SOD SUCC 125 MG/2ML VIAL ONE (03:44)
[2023-12-12] MEDS: IPRATROPIUM NEB FS 0.5 MG/2.5 ML AMPUL.NEB NEB ONE (03:46)
[2023-12-12] MEDS: ALBUTEROL FS 2.5 MG/3 ML VIAL.NEB CONTNEB ONE (03:46)
[2023-12-12] MEDS ORDERED: ALBUTEROL FS 2.5 MG/3 ML VIAL.NEB ONE (03:48)
[2023-12-12] MEDS ORDERED: IOHEXOL-350 100 ML VIAL IV ONE (03:49)
[2023-12-12] MEDS ORDERED: IPRATROPIUM NEB FS 0.5 MG/2.5 ML AMPUL.NEB ONE ×2 (03:49)
[2023-12-12] MEDS ORDERED: CT SWABBABLE VALVE TRANS SET 1 EA INFUS.SET MC ONE (03:49)
[2023-12-12] MEDS ORDERED: IV NS 0.9% 250 ML IV ONE (03:49)
[2023-12-12] MEDS: methylPREDNISolone SOD SUCC 125 MG/2ML VIAL IV ONE (03:54)
[2023-12-12 04:12] LABS: BASOPHILS % (AUTO) 0.5 % (0.0-2.0); EOSINOPHILS # (AUTO) 0.2 K/uL (0.0-0.7); HEMATOCRIT 39 % (39-51); HEMOGLOBIN 12.7 g/dL (13.5-17.5); LYMPHOCYTES # (AUTO) 2.4 K/uL (0.8-4.8); LYMPHOCYTES % (AUTO) 37.6 % (20.0-44.0); MEAN CORPUSCULAR HEMOGLOBIN 30 PG (26.0-33.0); MEAN CORPUSCULAR HGB CONC 32 g/dl (31.0-36.0); MEAN CORPUSCULAR VOLUME 91 fL (80-96); MONOCYTES # (AUTO) 1.1 K/uL (0.1-1.30); MONOCYTES % (AUTO) 17.2 % (2.0-12.0); NEUTROPHILS # (AUTO) 2.7 K/uL (1.8-8.9); NEUTROPHILS % (AUTO) 41.7 % (43.0-81.0); PLATELET COUNT (AUTO) 314 K/uL (150-450); RED CELL DISTRIBUTION WIDTH 17.5 % (11.5-15.0); WHITE BLOOD COUNT (AUTO) 6.4 K/uL (4.3-11.0)
[2023-12-12 04:28] LABS: INR 1.02 (0.91-1.10); PARTIAL THROMBOPLASTIN TIME 31.3 SEC (24.3-34.3); PROTHROMBIN TIME 10.8 SECS (9.2-11.1)
[2023-12-12 04:53] LABS: CALCIUM, SERUM 8.5 mg/dL (8.5-10.1); CARBON DIOXIDE 28 mmol/L (21-32); CHLORIDE 104 mmol/L (98-107); CREATININE 0.9 mg/dL (0.6-1.3); GLUCOSE 121 mg/dL (74-106); POTASSIUM 4.5 mmol/L (3.5-5.1); SODIUM SERUM 140 mmol/L (136-145); UREA NITROGEN, BLOOD 9 mg/dL (7-18)
[2023-12-12 05:01] LABS: LACTIC ACID 1.7 mmol/L (0.4-2.0)
[2023-12-12 05:07] LABS: ALANINE AMINOTRANSFERASE 112 U/L (12-78); ALBUMIN 3.1 g/dL (3.4-5.0); ALKALINE PHOSPHATASE 109 U/L (46-116); ASPARTATE AMINOTRANSFERASE 59 U/L (15-37); BILIRUBIN,DIRECT 0.1 mg/dL (0.0-0.2); BILIRUBIN,TOTAL 0.4 mg/dL (0.2-1.0); NT-PRO BNP 132 pg/mL (0-125); TOTAL PROTEIN, SERUM 7.7 g/dL (6.4-8.2)
[2023-12-12] MEDS ORDERED: FUROSEMIDE 20 MG/2 ML VIAL ONE (05:51)
[2023-12-12] MEDS: FUROSEMIDE 20 MG/2 ML VIAL IV ONE (05:55)
[2023-12-12 06:07] LABS: ANISOCYTOSIS 1+; EOSINOPHILS % (MANUAL) 2 % (0-4); LYMPHOCYTES % (MANUAL) 34 % (16-48); MONOCYTES % (MANUAL) 13 % (0-11.0); NEUTROPHILS % (MANUAL) 51 (42-76); PLATELET ESTIMATE ADEQUATE
[2023-12-12 06:08] LABS: OVALOCYTES 1+
[2023-12-12] MEDS ORDERED: FINA5TAB11 PO (08:08)
[2023-12-12] MEDS ORDERED: CLIN60LO TP (08:08)
[2023-12-12] MEDS ORDERED: DICL100G34 TP (08:08)
[2023-12-12] MEDS ORDERED: SENN-261 PO (08:08)
[2023-12-12] MEDS ORDERED: METF-440 PO (08:08)
[2023-12-12] MEDS ORDERED: GABA-532 PO (08:08)
[2023-12-12] MEDS ORDERED: ONDA8TAB65 PO (08:08)
[2023-12-12] MEDS ORDERED: FLUO60SO3 TP (08:08)
[2023-12-12] MEDS ORDERED: CARV3.122 PO (08:08)
[2023-12-12] MEDS ORDERED: BENZ-13 PO (08:08)
[2023-12-12] MEDS ORDERED: KETO120S5 TP (08:08)
[2023-12-12] MEDS ORDERED: OXYC5TAB3 PO (08:08)
[2023-12-12] MEDS ORDERED: ATOR40TA PO (08:08)
[2023-12-12] MEDS ORDERED: FLUT10.62 IH (08:08)
[2023-12-12] MEDS ORDERED: SUCR1ORA15 PO (08:08)
[2023-12-12] MEDS ORDERED: KETO15CR2 (08:08)
[2023-12-12] MEDS ORDERED: DOCU100C36 PO (08:08)
[2023-12-12] MEDS ORDERED: CETI5TAB6 PO (08:08)
[2023-12-12] MEDS ORDERED: TAMS-12 PO (08:08)
[2023-12-12] MEDS ORDERED: ACET-73 PO (08:08)
[2023-12-12] MEDS ORDERED: HYDR30TA PO (08:08)
[2023-12-12] MEDS ORDERED: NALO4SPR NS (08:08)
[2023-12-12] MEDS ORDERED: HYDR5TAB13 PO ×2 (08:08)
[2023-12-12] MEDS ORDERED: MAGNESIUM HYDROXIDE 30 ML UDC PO PRN (10:30)
[2023-12-12] MEDS ORDERED: DEXTROSE 50%-WATER 50 ML DISP.SYRIN IV PRN (10:30)
[2023-12-12] MEDS ORDERED: Z GUARD REMEDY 4 OZ OINT TP PRN (10:30)
[2023-12-12] MEDS ORDERED: ALBUTEROL FS 2.5 MG/3 ML VIAL.NEB NEB PRN (10:30)
[2023-12-12] MEDS ORDERED: ONDANSETRON HCL/PF 4 MG/2 ML VIAL IVP PRN (10:30)
[2023-12-12] MEDS ORDERED: MAG HYDROX/AL HYDROX/SIMETH 30 ML UDC PO PRN (10:30)
[2023-12-12] MEDS ORDERED: IPRATROPIUM NEB FS 0.5 MG/2.5 ML AMPUL.NEB NEB PRN (10:30)
[2023-12-12] MEDS ORDERED: ZOLPIDEM TARTRATE 5 MG TABLET PO PRN (10:30)
[2023-12-12 11:01] LABS: BASOPHILS % (AUTO) 0.3 % (0.0-2.0); EOSINOPHILS % (AUTO) 0.1 % (0.0-6.0); HEMATOCRIT 43 % (39-51); HEMOGLOBIN 13.9 g/dL (13.5-17.5); LYMPHOCYTES # (AUTO) 0.9 K/uL (0.8-4.8); LYMPHOCYTES % (AUTO) 17.4 % (20.0-44.0); MEAN CORPUSCULAR HEMOGLOBIN 30 PG (26.0-33.0); MEAN CORPUSCULAR HGB CONC 33 g/dl (31.0-36.0); MEAN CORPUSCULAR VOLUME 90 fL (80-96); MONOCYTES # (AUTO) 0.1 K/uL (0.1-1.30); MONOCYTES % (AUTO) 1.4 % (2.0-12.0); NEUTROPHILS % (AUTO) 80.8 % (43.0-81.0); PLATELET COUNT (AUTO) 328 K/uL (150-450); RED BLOOD CELL COUNT(AUTO) 4.71 MIL/uL (4.5-6.0); RED CELL DISTRIBUTION WIDTH 17.6 % (11.5-15.0); WHITE BLOOD COUNT (AUTO) 4.9 K/uL (4.3-11.0)
[2023-12-12 11:06] LABS: CALCIUM, SERUM 9.2 mg/dL (8.5-10.1); CREATININE 0.7 mg/dL (0.6-1.3); POTASSIUM 4.2 mmol/L (3.5-5.1)
[2023-12-12 11:12] LABS: ALBUMIN 3.7 g/dL (3.4-5.0); BILIRUBIN,TOTAL 0.4 mg/dL (0.2-1.0); PHOSPHORUS 4.2 mg/dL (2.5-4.9); TOTAL PROTEIN, SERUM 8.6 g/dL (6.4-8.2)
[2023-12-12 11:16] LABS: LACTIC ACID 1.1 mmol/L (0.4-2.0)
[2023-12-12] MEDS: BLOOD SUGAR DIAGNOSTIC 1 EACH STRIP IN SCH (12:12)
[2023-12-12] MEDS: INSULIN REGULAR, HUMAN 100 UNIT/ML 3 ML VIAL SQ PRN (12:13)
[2023-12-12] MEDS: methylPREDNISolone SOD SUCC 40 MG/ML VIAL IV SCH (12:17)
[2023-12-12] MEDS: ACETAMINOPHEN 325 MG TABLET PO PRN (12:19)
[2023-12-12] MEDS: IPRATROPIUM NEB FS 0.5 MG/2.5 ML AMPUL.NEB NEB SCH (14:23)
[2023-12-12] MEDS: ALBUTEROL FS 2.5 MG/0.5 ML VIAL.NEB NEB SCH (14:23)
[2023-12-12] MEDS: FUROSEMIDE 20 MG/2 ML VIAL IV SCH (16:59)
[2023-12-12] MEDS ORDERED: NALOXONE HCL 0.4 MG/ML AMPUL IV PRN (19:30)
[2023-12-12] MEDS ORDERED: ONDANSETRON 4 MG TAB.RAPDIS PO PRN (19:30)
[2023-12-12] MEDS ORDERED: ACETAMINOPHEN ES 500 MG TABLET PO PRN (19:30)
[2023-12-12] MEDS ORDERED: BENZONATATE 100 MG CAPSULE PO PRN (19:30)
[2023-12-12] MEDS ORDERED: HOME MED MISCELLANEOUS XX SCH (19:30)
[2023-12-12] MEDS: SUCRALFATE 1 G/10 ML UDC PO SCH (21:00)
[2023-12-12] MEDS: oxyCODONE IR immediate release 5 MG TABLET PO PRN (21:02)
[2023-12-12] MEDS: BUDESONIDE RESPULE INH 0.5 MG/2 ML AMPUL.NEB IH SCH (21:16)
[2023-12-12] MEDS: GABAPENTIN 100 MG CAPSULE PO SCH (21:45)
[2023-12-12] MEDS: SENNOSIDES 8.6 MG TABLET PO SCH (22:00)
[2023-12-12] MEDS: HYDROCORTISONE 5 MG TABLET PO SCH (22:00)
[2023-12-13] VITALS (12 sets, daily range): BP systolic 103–121; BP diastolic 60–71; TEMP 97.1–97.8; O2SAT 90–99
[2023-12-13 07:28] LABS: HEMATOCRIT 37 % (39-51); HEMOGLOBIN 12.2 g/dL (13.5-17.5); LYMPHOCYTES # (AUTO) 1.6 K/uL (0.8-4.8); LYMPHOCYTES % (AUTO) 20.8 % (20.0-44.0); MEAN CORPUSCULAR HEMOGLOBIN 30 PG (26.0-33.0); MEAN CORPUSCULAR HGB CONC 33 g/dl (31.0-36.0); MEAN CORPUSCULAR VOLUME 90 fL (80-96); MONOCYTES # (AUTO) 1.4 K/uL (0.1-1.30); MONOCYTES % (AUTO) 18.3 % (2.0-12.0); NEUTROPHILS # (AUTO) 4.7 K/uL (1.8-8.9); NEUTROPHILS % (AUTO) 60.9 % (43.0-81.0); PLATELET COUNT (AUTO) 341 K/uL (150-450); RED BLOOD CELL COUNT(AUTO) 4.12 MIL/uL (4.5-6.0); RED CELL DISTRIBUTION WIDTH 17.7 % (11.5-15.0); WHITE BLOOD COUNT (AUTO) 7.7 K/uL (4.3-11.0)
[2023-12-13] MEDS: PANTOPRAZOLE 40 MG TABLET.DR PO SCH (07:30)
[2023-12-13 08:07] LABS: CALCIUM, SERUM 8.2 mg/dL (8.5-10.1); MAGNESIUM 2.6 mg/dL (1.8-2.4); PHOSPHORUS 5.8 mg/dL (2.5-4.9); POTASSIUM 3.8 mmol/L (3.5-5.1)
[2023-12-13] MEDS: METFORMIN 500 MG TABLET PO SCH (09:00)
[2023-12-13] MEDS ORDERED: ENTECAVIR 0.5 MG PO SCH (09:00)
[2023-12-13] MEDS: CLINDAMYCIN PHOSPHATE-T 60 ML BOTTLE TP SCH (09:00)
[2023-12-13] MEDS: FOLIC ACID 1 MG TABLET PO SCH (09:00)
[2023-12-13] MEDS ORDERED: HYDROCODONE PO SCH (09:00)
[2023-12-13] MEDS: KETOCONAZOLE 2% CREAM 15 GM TUBE TP SCH (09:14)
[2023-12-13] MEDS: FLUOCINONIDE 0.05% SOLN 60 ML BOTTLE TP SCH (09:14)
[2023-12-13] MEDS: ATORVASTATIN 40 MG TABLET PO SCH (09:14)
[2023-12-13] MEDS: CHOLECALCIFEROL 1,000 UNIT TABLET (VIT D3) PO SCH (09:14)
[2023-12-13] MEDS: PANTOPRAZOLE 40 MG VIAL IV SCH (09:19)
[2023-12-13] MEDS: DOCUSATE SODIUM 100 MG CAPSULE PO SCH (09:25)
[2023-12-13] MEDS: CARVEDILOL 3.125 MG TABLET PO SCH (09:26)
[2023-12-13] MEDS: MULTIVIT W/MINERALS 1 TAB TABLET PO SCH (09:27)
[2023-12-13] MEDS: HYDROCORTISONE 5 MG TABLET PO SCH (09:28)
[2023-12-13] MEDS: cetrizine 10 MG TABLET PO SCH (09:29)
[2023-12-13] MEDS: TAMSULOSIN 0.4 MG CAP.SR.24H PO SCH (09:29)
[2023-12-13] MEDS: FINASTERIDE (5 MG) 5 MG TABLET PO SCH (09:29)
[2023-12-13] MEDS: DICLOFENAC TOPICAL 100 GM TUBE TP SCH (12:19)
[2023-12-13 13:59] LABS: LYMPHOCYTES % (MANUAL) 18 % (16-48); MONOCYTES % (MANUAL) 14 % (0-11.0); NEUTROPHILS % (MANUAL) 68 (42-76); PLATELET ESTIMATE ADEQUATE
[2023-12-13 14:00] LABS: ANISOCYTOSIS 1+
[2023-12-13] MEDS: KETOCONAZOLE SHAMPOO 120 ML BOTTLE TP SCH (18:00)
[2023-12-13] MEDS: FUROSEMIDE 20 MG/2 ML VIAL IV SCH (20:08)
[2023-12-14] VITALS (9 sets, daily range): BP systolic 104–119; BP diastolic 62–67; TEMP 97.5–98.1; O2SAT 92–99
[2023-12-14 07:46] LABS: BASOPHILS % (AUTO) 0.3 % (0.0-2.0); EOSINOPHILS % (AUTO) 0.1 % (0.0-6.0); HEMATOCRIT 39 % (39-51); HEMOGLOBIN 12.9 g/dL (13.5-17.5); LYMPHOCYTES # (AUTO) 1.4 K/uL (0.8-4.8); LYMPHOCYTES % (AUTO) 15.1 % (20.0-44.0); MEAN CORPUSCULAR HEMOGLOBIN 30 PG (26.0-33.0); MEAN CORPUSCULAR HGB CONC 33 g/dl (31.0-36.0); MEAN CORPUSCULAR VOLUME 92 fL (80-96); MONOCYTES # (AUTO) 0.6 K/uL (0.1-1.30); MONOCYTES % (AUTO) 6.4 % (2.0-12.0); NEUTROPHILS % (AUTO) 78.1 % (43.0-81.0); PLATELET COUNT (AUTO) 330 K/uL (150-450); RED BLOOD CELL COUNT(AUTO) 4.29 MIL/uL (4.5-6.0); RED CELL DISTRIBUTION WIDTH 17.9 % (11.5-15.0)
[2023-12-14 08:45] LABS: CALCIUM, SERUM 8.4 mg/dL (8.5-10.1); MAGNESIUM 2.3 mg/dL (1.8-2.4); POTASSIUM 4.1 mmol/L (3.5-5.1)
[2023-12-14] MEDS ORDERED: CLINDAMYCIN PHOSPHATE-T 60 ML BOTTLE TP SCH (09:00)
[2023-12-14] MEDS: methylPREDNISolone SOD SUCC 40 MG/ML VIAL IV SCH (10:18)
[2023-12-14] MEDS ORDERED: ALBU0.633 NEB (11:07)
[2023-12-14] MEDS ORDERED: IPRA0.2S9 IH (11:07)
[2023-12-14] MEDS ORDERED: METH4TAB17 PO (12:40)
[2023-12-14] MEDS ORDERED: FLUT10.62 INH (12:40)
== END 2023-12-14 18:33 | disposition home or self-care (01) | DRG 291 ==
LOC: ER 03:38 → TRANSITION 08:55 → TELE 11:11
PROVIDERS: ADMIT Nurse Practitioner Acute Care; ATTEND Nurse Practitioner Acute Care
DX: I50.33 Acute on chronic diastolic (congestive) heart failure (principal); J96.01 Acute respiratory failure with hypoxia; C34.90 Malignant neoplasm of unspecified part of unspecified bronchus or lung; J81.1 Chronic pulmonary edema; J45.901 Unspecified asthma with (acute) exacerbation; C79.9 Secondary malignant neoplasm of unspecified site; K21.9 Gastro-esophageal reflux disease without esophagitis; Z87.891 Personal history of nicotine dependence; Z88.2 Allergy status to sulfonamides; Z20.822 Contact with and (suspected) exposure to COVID-19; R74.01 Elevation of levels of liver transaminase levels; E27.8 Other specified disorders of adrenal gland; E11.9 Type 2 diabetes mellitus without complications
CPT/HCPCS: 36415; 70220-TC; 71045-TC; 80048-TC; 80053-TC; 80061-TC; 80076-TC; 82962-TC; 83605-TC; 83735-TC; 83880; 84100-TC; 84484-TC; 85025-TC; 85730-TC; 87040-TC; 93307-TC; 94760-TC; 94799-TC; 97110-TC; 97116-TC; 97530-TC; C9113; G0378; J1815; J1940; J2920; J2930; J7050; Q9967